=== PATIENT | male | born 1950 | race Caucasian/White ===

== ENCOUNTER 2019-03-04 09:16 | Emergency (ER) | payer OTHER ==
[2019-03-04 10:18] LABS: Protime INR 1.04
[2019-03-04 10:32] LABS: ALT/SGPT 61 U/L (12-78); AST/SGOT 35 U/L (15-37); Albumin 3.3 g/dL (3.4-5.0); Alkaline Phosphatase 65 U/L (45-117); BUN Blood Urea Nitrogen 13 mg/dL (7-18); Bicarbonate 26 mmol/L (21-32); Bilirubin Direct 0.2 mg/dL (0-0.2); Bilirubin Total 0.5 mg/dL (0.2-1.0); Glucose Level 104 mg/dL (74-106); Magnesium 2.3 mg/dL (1.8-2.4); NT PRO-BNP 748 pg/mL (<125); Protein, Total 6.8 g/dL (6.4-8.2); Sodium Level 143 mmol/L (136-145); Troponin (Emerg Dept Use Only) < 0.02 ng/mL (0.0-0.045)
[2019-03-04 10:34] LABS: Basophils % 0.6 % (0-1.3); Hematocrit 40.8 % (39.6-49.0); Lymphocytes % 14.8 % (15.3-44.8); MPV 9.9 fL (7.6-11.3); RBC Red Blood Cell Count 4.67 M/uL (4.33-5.43)
--- NOTE | 2019-03-04 11:30 | ER ---
Nurse's Notes [facility] Name: Mitul Jeong Age: 68 yrs Sex: Male : 1950 Arrival Date: 03/04/2019 Time: 09:18 Bed 8 Private MD: Kaleb Campos E Diagnosis: Essential (primary) hypertension Presentation: 03/04 09:25 Presenting complaint: Patient states: My Blood pressure has been running high, and I sg have had some shortness of breath that has worsened today, denies Dizziness, Chest Pain, denies N/V/D/Fever. Reports recently changed from Losartan to Metoprolol but unsure of why made the change other than having elevated renal labs. Transition of care: patient was not received from another setting of care. Onset of symptoms was March 04, 2019. Risk Assessment: Do you want to hurt yourself or someone else? Patient reports no desire to harm self or others. Initial Sepsis Screen: Does the patient meet any 2 criteria? No. Patient's initial sepsis screen is negative. Does the patient have a suspected source of infection? No. Patient's initial sepsis screen is negative. Care prior to arrival: None. 09:25 Method Of Arrival: Ambulatory sg 09:25 Acuity: GABRIELA 3 sg Historical: - Allergies: 09:34 No Known Allergies; sg - Home Meds: 09:34 Metoprolol Tartrate Oral [Active]; sg - PMHx: 09:34 Hypertension; sg - PSHx: 09:34 None; sg - Immunization history:: Adult Immunizations up to date. - Social history:: Smoking status: Patient/guardian denies using tobacco. - Ebola Screening: : Patient negative for fever greater than or equal to 101.5 degrees Fahrenheit, and additional compatible Ebola Virus Disease symptoms Patient denies exposure to infectious person Patient denies travel to an Ebola-affected area in the 21 days before illness onset No symptoms or risks identified at this time. Screenin:34 Abuse screen: Denies threats or abuse. Denies injuries from another. Nutritional sg screening: No deficits noted. Tuberculosis screening: No symptoms or risk factors identified. Never had TB. Fall Risk None identified. Assessment: 09:34 General: Appears in no apparent distress. well groomed, well developed, well nourished, sg Behavior is calm, cooperative, appropriate for age. Pain: Denies pain. Neuro: Level of Consciousness is awake, alert, obeys commands, Oriented to person, place, time, Cash Management Associate are equal bilaterally Moves all extremities. Speech is normal, Facial symmetry appears normal, Denies weakness blurred vision dizziness, difficulty swallowing, paresthesias numbness headache photophobia diplopia. Cardiovascular: Capillary refill is brisk in bilateral fingers Patient's skin is warm and dry. Chest pain is denied. Respiratory: Airway is patent Respiratory effort is even, unlabored, Respiratory pattern is regular, symmetrical, Breath sounds are clear bilaterally. GI: Abdomen is round obese, Reports normal bowel habits, tolerance of fluids, tolerance of food. : No signs and/or symptoms were reported regarding the genitourinary system. EENT: No signs and/or symptoms were reported regarding the EENT system. Derm: Skin is pink, warm \T\ dry. Musculoskeletal: Circulation, motion, and sensation intact. Range of motion: intact in all extremities. 10:30 Cardiovascular: Rhythm is sinus rhythm. bp 11:48 Reassessment: PT D/C HOME AMBULATORY WITH FAMILY, DX WITH ESSENTIAL HTN. bp Vital Signs: 09:23 BP 178 / 100; Pulse 63; Resp 18; Pulse Ox 100% on R/A; sg 09:44 Temp 98.8; sg 10:19 BP 134 / 90; Pulse 60; Resp 17; Pulse Ox 100% on R/A; sg 11:13 BP 131 / 86; Pulse 62; Resp 17; Pulse Ox 99% ; sg ED Course: 09:18 Patient arrived in ED. ag5 09:18 Kaleb Campos MD is Private Physician. ag5 09:22 Arm band placed on. sg 09:24 Brady Castañeda, RN is Primary Nurse. sg 09:25 Charles Hand NP is PHCP. pm1 09:25 Max Gallagher MD is Attending Physician. pm1 09:33 Triage completed. sg 09:45 Patient has correct armband on for positive identification. Bed in low position. Call bp light in reach. Side rails up X2. Adult w/ patient. 09:51 XRAY Chest (1 view) In Process Unspecified. EDMS 09:55 EKG done, by ED staff, reviewed by Charles Hand NP. jb1 10:00 Initial lab(s) drawn, by me, sent to lab. Inserted saline lock: 22 gauge in right sg antecubital area, using aseptic technique. Blood collected. 10:49 Nurse Practitioner and/or Physician Simulation Educator to see patient. sg 11:29 Kaleb Campos MD is Referral Physician. pm1 11:49 No provider procedures requiring assistance completed. IV discontinued, intact, bp bleeding controlled, No redness/swelling at site. Pressure dressing applied. Administered Medications: No medications were administered Outcome: 11:29 Discharge ordered by . pm1 11:49 Discharged to home ambulatory, with family. bp 11:49 Condition: stable 11:49 Discharge instructions given to patient, Instructed on discharge instructions, follow up and referral plans. Demonstrated understanding of instructions, follow-up care. 11:50 Patient left the ED. bp Signatures: Dispatcher [employer] EDCasey Saul jb1 Brady Castañeda, RN RN sg Charles Hand, ADMISSIONS EVALUATOR ADMISSIONS EVALUATOR pm1 Shivam Reinoso RN RN bp Danis Posey ag5
--- NOTE | 2019-03-04 11:30 | EDPHYS ---
Physician Documentation [facility] Name: Mitul Ricerzypadry Age: 68 yrs Sex: Male : 1950 Arrival Date: 03/04/2019 Time: 09:18 Bed 8 Private MD: Kaleb Campos E ED Physician Max Gallagher HPI: 03/04 09:45 This 68 yrs old Male presents to ER via Ambulatory with complaints of pm1 Shortness Of Breath, High Blood Pressure. 09:45 Patient with complaints of shortness of breath and elevated blood pressure. Patient saw pm1 PCPBeth recently and had labs. Was called in a prescription for Metoprolol 25 mg BID and instructed to stop the losartan 50 / 12.5 HCTZ Daily. Patient's blood pressure started getting elevated on . Reports shortness of breath started with elevated blood pressure. No chest pain, cough, nausea or vomiting. Patient' reports highest blood pressure readings of 190's systolic and 120's diastolic . Historical: - Allergies: 09:34 No Known Allergies; sg - Home Meds: 09:34 Metoprolol Tartrate Oral [Active]; sg - PMHx: 09:34 Hypertension; sg - PSHx: 09:34 None; sg - Immunization history:: Adult Immunizations up to date. - Social history:: Smoking status: Patient/guardian denies using tobacco. - Ebola Screening: : Patient negative for fever greater than or equal to 101.5 degrees Fahrenheit, and additional compatible Ebola Virus Disease symptoms Patient denies exposure to infectious person Patient denies travel to an Ebola-affected area in the 21 days before illness onset No symptoms or risks identified at this time. ROS: 16:02 Constitutional: Negative for fever, chills, and weight loss, Eyes: Negative for injury, pm1 pain, redness, and discharge, ENT: Negative for injury, pain, and discharge, Neck: Negative for injury, pain, and swelling, Cardiovascular: Negative for chest pain, palpitations, and edema. 16:02 Abdomen/GI: Negative for abdominal pain, nausea, vomiting, diarrhea, and constipation, Back: Negative for injury and pain, : Negative for injury, bleeding, discharge, and swelling, MS/Extremity: Negative for injury and deformity, Skin: Negative for injury, rash, and discoloration, Neuro: Negative for headache, weakness, numbness, tingling, and seizure. 16:02 Respiratory: Positive for shortness of breath, Negative for cough, dyspnea on exertion, sputum production, wheezing. Exam: 16:02 Constitutional: This is a well developed, well nourished patient who is awake, alert, pm1 and in no acute distress. Head/Face: Normocephalic, atraumatic. Eyes: Pupils equal round and reactive to light, extra-ocular motions intact. Lids and lashes normal. Conjunctiva and sclera are non-icteric and not injected. Cornea within normal limits. Periorbital areas with no swelling, redness, or edema. ENT: Nares patent. No nasal discharge, no septal abnormalities noted. Tympanic membranes are normal and external auditory canals are clear. Oropharynx with no redness, swelling, or masses, exudates, or evidence of obstruction, uvula midline. Mucous membranes moist. Neck: Trachea midline, no thyromegaly or masses palpated, and no cervical lymphadenopathy. Supple, full range of motion without nuchal rigidity, or vertebral point tenderness. No Meningismus. Chest/axilla: Normal chest wall appearance and motion. Nontender with no deformity. No lesions are appreciated. Cardiovascular: Regular rate and rhythm with a normal S1 and S2. No gallops, murmurs, or rubs. Normal PMI, no JVD. No pulse deficits. Respiratory: Lungs have equal breath sounds bilaterally, clear to auscultation and percussion. No rales, rhonchi or wheezes noted. No increased work of breathing, no retractions or nasal flaring. Abdomen/GI: Soft, non-tender, with normal bowel sounds. No distension or tympany. No guarding or rebound. No evidence of tenderness throughout. Back: No spinal tenderness. No costovertebral tenderness. Full range of motion. Skin: Warm, dry with normal turgor. Normal color with no rashes, no lesions, and no evidence of cellulitis. MS/ Extremity: Pulses equal, no cyanosis. Neurovascular intact. Full, normal range of motion. 16:02 Neuro: Orientation: is normal, Motor: is normal, moves all fours, Gait: is steady, at a normal pace, without difficulty. Vital Signs: 09:23 BP 178 / 100; Pulse 63; Resp 18; Pulse Ox 100% on R/A; sg 09:44 Temp 98.8; sg 10:19 BP 134 / 90; Pulse 60; Resp 17; Pulse Ox 100% on R/A; sg 11:13 BP 131 / 86; Pulse 62; Resp 17; Pulse Ox 99% ; sg MDM: 09:25 Patient medically screened. pm1 11:28 Data reviewed: vital signs. Data interpreted: Pulse oximetry: on room air is 99 %. pm1 Interpretation: normal. 11:28 Counseling: I had a detailed discussion with the patient and/or guardian regarding: the pm1 historical points, exam findings, and any diagnostic results supporting the discharge/admit diagnosis, lab results, radiology results, the need for outpatient follow up, to return to the emergency department if symptoms worsen or persist or if there are any questions or concerns that arise at home. 11:28 Physician consultation: Kaleb Campos MD No return phone call or answer with calls at pm1 1050 and 1122. Informed patient that he has not called back and the patient told me that he decided that he will go back to his losartan-HCTZ on his own until he follows up next week. I told the patient that I cannot support his decision to take medications without his PCP's advise. Patient likely needs dual therapy for blood pressure management, perhaps losartan with metoprolol. 03/04 09:33 Order name: Basic Metabolic Panel; Complete Time: 10:35 pm1 03/04 09:33 Order name: CBC with Diff; Complete Time: 10:35 pm1 03/04 09:33 Order name: LFT's; Complete Time: 10:35 pm1 03/04 09:33 Order name: Magnesium; Complete Time: 10:35 pm1 03/04 09:33 Order name: NT PRO-BNP; Complete Time: 10:35 pm1 03/04 09:33 Order name: PT-INR; Complete Time: 10:35 pm1 03/04 09:33 Order name: Troponin (emerg Dept Use Only); Complete Time: 10:35 pm1 03/04 09:33 Order name: XRAY Chest (1 view); Complete Time: 11:56 pm1 03/04 09:33 Order name: EKG; Complete Time: 09:34 pm1 03/04 09:33 Order name: Cardiac monitoring; Complete Time: 09:35 pm1 03/04 09:33 Order name: EKG - Nurse/Tech; Complete Time: :44 pm1 03/04 09:33 Order name: IV Saline Lock; Complete Time: :44 pm1 03/04 09:33 Order name: Labs collected and sent; Complete Time: :44 pm1 03/04 09:33 Order name: O2 Per Protocol; Complete Time: 09:35 pm1 03/04 09:33 Order name: O2 Sat Monitoring; Complete Time: :35 pm1 Administered Medications: No medications were administered Disposition: 14:02 Co-signature as Attending Physician, Max Gallagher MD. rn Disposition: 03/04/19 11:29 Discharged to Home. Impression: Essential (primary) hypertension. - Condition is Stable. - Discharge Instructions: Hypertension, How to Take Your Blood Pressure, Grmw-ip-Ifdy, DASH Eating Plan, Managing Your Hypertension. - Medication Reconciliation Form, Thank You Letter, Antibiotic Education, Prescription Opioid Use form. - Follow up: Emergency Department; When: As needed; Reason: Worsening of condition. Follow up: Kaleb Campos MD; When: 2 - 3 days; Reason: Recheck today's complaints, Continuance of care, Re-evaluation by your physician. - Problem is new. - Symptoms have improved. Signatures: Dispatcher [employer] EDBrady Moody RN RN Max Gallagher MD MD rn Marinas, Patrick, GEM CUTTER GEM CUTTER pm1 Shivam Reinoso RN RN bp Corrections: (The following items were deleted from the chart) 11:50 11:29 03/04/2019 11:29 Discharged to Home. Impression: Essential (primary) bp hypertension. Condition is Stable. Forms are Medication Reconciliation Form, Thank You Letter, Antibiotic Education, Prescription Opioid Use. Follow up: Emergency Department; When: As needed; Reason: Worsening of condition. Follow up: Kaleb Campos; When: 2 - 3 days; Reason: Recheck today's complaints, Continuance of care, Re-evaluation by your physician. Problem is new. Symptoms have improved. pm1
--- NOTE | 2019-03-04 11:41 | RAD REPORT ---
EXAM DESCRIPTION: Beth Single View03/04/2019 9:55 am CLINICAL HISTORY: sob COMPARISON: none FINDINGS: The lungs appear clear of acute infiltrate. The heart is normal size IMPRESSION: No acute abnormalities displayed
[2019-03-04 12:05] VITALS: TEMP 98.8
[2019-03-04 12:08] VITALS: BP 131/86; O2SAT 99
--- NOTE | 2019-03-05 19:55 | EKG ---
Test Date: 2019-03-04 Test Time: 09:43:04 Staff Air Defense Officer: LUIS MANUEL MEASUREMENT RESULTS: Intervals: Rate: 64 VT: 148 QRSD: 106 QT: 404 QTc: 416 [place]: P: 21 VT: 148 QRS: 14 T: 43 INTERPRETIVE STATEMENTS: Normal sinus rhythm Normal ECG No previous ECG available for comparison Electronically Signed On 03-05-19 19:53:05 CDT by Aj Barnard
== END 2019-03-04 11:50 | disposition home or self-care (01) ==
LOC: ER 09:16
DX: I10 Essential (primary) hypertension (principal)
CPT/HCPCS: 36415; 71045; 80048; 80076; 83735; 83880; 84484; 85025; 85610; 93005; 99284

== ENCOUNTER 2020-04-27 14:15 | Inpatient (IN) | payer OTHER ==
--- OUTSIDE RECORDS SUMMARY | 2020-04-27 14:16 | XMS REPORT | Continuity of Care Document ---
:1950 Author Organization [facility] t Address [address] [place] [address] Care Team Providers Name Role Phone Unavailable Unavailable Unavailable Problems This patient has no known problems. Allergies, Adverse Reactions, Alerts This patient has no known allergies or adverse reactions. Medications Ordered Filled Start Stop Current Ordering Indication Dosage Frequency Signature Comments Components Source Medication Medication Date Date Medication? Clinician (SIG) Name Name Hydrochloro Hydrochloro 2019-0 Yes Na Zhao [address] [facility] thiazide [facility]iazide 4-01 [facility] Losartan Losartan 2019-0 Yes Na Zhao [address] [facility] Potassium Potassium 4-01 [facility] Neomycin-Po Neomycin-Po 2019-0 Yes Na Zhao [address] [facility] lymyxin-HC lymyxin-HC 3-24 into [facility] - 00:00: affected [facility] 00 ear l [facility] Immunizations Ordered Filled Immunization Date Status Comments Sourc e Immunization Name Name Prevnar 13 Prevnar 13 2019-12-[address] [facility] - -Pneumonia Vaccine -Pneumonia Vaccine 00:00:00 [facility] Procedures This patient has no known procedures. Encounters Start End Encounter Admission Attending Care Care Encounter Source Date/Time Date/Time Type Type Clinicians Facility Department ID 2020-02-15 2020-02-15 Outpatient [facility] [id number] [facility] 2019-12-27 2019-12-27 [facility] [id number] [facility] 10:40:00 10:40:00 [facility] [employer] [facility] Medicine Outpati ent Clinics 2019-12-27 2019-12-27 [facility] [id number] [facility] 10:00:00 10:00:00 t [employer] [facility] Medicine Outpati ent Clinics 2019-11-15 2019-11-15 [facility] [id number] [facility] 11:20:00 11:20:00 t [employer] [facility] Medicine Outpati ent Clinics 2019-08-09 2019-08-09 [facility] [id number] [facility] 08:38:00 08:38:[address] [facility] Medicine Outpati ent Clinics 2019-08-01 2019-08-01 [facility] [id number] [facility] [address] 08[facility]00:00 08:00:[address] [facility] Medicine Outpati ent Clinics 2019-05-08 2019-05-08 [facility] [id number] [facility] [address] 08:00:[facility] 08:00:[address] [facility] Medicine Outpati ent Clinics 2019-05-05 2019-05-05 [facility] [id number] [facility] 10:00:00 10:00:[address] [facility] Medicine Outpati [facility] Clinics Results This patient has no known results.
--- OUTSIDE RECORDS SUMMARY | 2020-04-27 14:16 | XMS REPORT ---
:1950 Author Organization [facility] Address 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 Active 687550390 to excess calories Problem Hyperuricemia E79.0 Active 91402263 Problem Essential I10 Active 96222474 hypertension Problem Establishing care Z76.89 Active 620099061 with new doctor, encounter for Problem Hypertension, I10 Active 31041553 unspecified type Problem Acute bacterial H10.31 Active 735764552 conjunctivitis of right eye ALLERGIES No Known Allergies ENCOUNTERS from 1950 to 2020-02-16 Encounter Location Date Provider Diagnosis [facility] [address] [facility] [address] [place] [address] Feb, 2020 [place] [address] IMMUNIZATIONS Vaccine Route Administration Date Status Prevnar 13 -Pneumonia Vaccine IM Intramuscular Dec 27, 2019 A dministered SOCIAL HISTORY Tobacco Use: Social History Observation Description Date Details (start date - stop date) Current Smoker Sex Assigned At : Social History Observation Description Sex Assigned At Unknown Alcohol Screen Question Answer Notes Did you have a drink containing alcohol in the past Yes year? Points 2 Interpretation Negative How often did you have 6 or more drinks on one Less than mon thly (1 point) occasion in the past year? How many drinks did you have on a typical day when 1 or 2 (0 points) you were drinking in the past year? How often did you have a drink containing alcohol Monthly or less (1 point) in the past year? Tobacco Use/Smoking Question Answer Notes Are you a current smoker How many cigarettes a day do you smoke? 11- REASON FOR REFERRAL No Information VITAL SIGNS No information MEDICATIONS Medication SIG (Take, Route, Start Date End Date Status Frequency, Duration) Losartan Potassium 50 MG 1 tablet Orally Once Active a day for 90 days Cpvnykfa-Xecbflefs-CO 4 drops into affected Jul, Not-Taking [id number] ear Otic Three times a day for 7 days Hydrochlorothiazide 12.5 MG 1 tablet in the Active morning Orally Once a day for 90 days PROCEDURES No Information RESULTS No Results REASON FOR VISIT shortness of breath MEDICAL (GENERAL) HISTORY Type Description Date Medical History Essential hypertension Medical History psoriasis Surgical History No Surgical history information Goals Section No Information Health Concerns No Information MEDICAL EQUIPMENT No Information MENTAL STATUS No Information FUNCTIONAL STATUS No Information ASSESSMENTS No Information PLAN OF TREATMENT Medication Medication Name Sig Start Date Stop Date Losartan Potassium 50 MG 1 tablet Orally Once a day for 90 days Hydrochlorothiazide 12.5 MG 1 tablet in the morning Orally Once a day for 90 days Insurance Providers Payer Name Payer Payer Insured Patient Coverage Coverage End Address Phone Name Relationship to Start Date Chavo e Insured [employer] [phone] [place], self [facility] [id number] [facility] [place] Replace [phone]
[2020-04-27] MEDS ORDERED: NA CHLORIDE 0.9% 500 ML ONE (15:10)
[2020-04-27 15:21] LABS: Absolute Lymphocytes (CBC) 0.5 K/uL (0.7-4.9); Basophils % 0.5 % (0-1.3); Hematocrit 42.2 % (39.6-49.0); Lymphocytes % 17.9 % (15.3-44.8); MPV 10.4 fL (7.6-11.3); RBC Red Blood Cell Count 5.02 M/uL (4.33-5.43)
[2020-04-27 15:27] LABS: Protime INR 1.05
[2020-04-27 15:35] LABS: ALT/SGPT 45 U/L (12-78); AST/SGOT 44 U/L (15-37); Albumin 3.3 g/dL (3.4-5.0); Alkaline Phosphatase 62 U/L (45-117); BUN Blood Urea Nitrogen 23 mg/dL (7-18); Bicarbonate 27 mmol/L (21-32); Bilirubin Direct 0.3 mg/dL (0-0.2); Bilirubin Total 0.6 mg/dL (0.2-1.0); Creatine Phosphokinase 128 U/L (39-308); Glucose Level 99 mg/dL (74-106); Lipase 238 U/L (73-393); Magnesium 2.4 mg/dL (1.8-2.4); Potassium 3.3 mmol/L (3.5-5.1); Protein, Total 7.2 g/dL (6.4-8.2); Sodium Level 135 mmol/L (136-145); Troponin (Emerg Dept Use Only) < 0.02 ng/mL (0.0-0.045)
[2020-04-27] MEDS ORDERED: ALBUTEROL INHALER 60 PUFF/8 GM IH ONE (15:42)
[2020-04-27] MEDS ORDERED: METHYLPREDNISOLONE 40 MG INJ ONE (15:42)
[2020-04-27] MEDS ORDERED: POTASSIUM 25 MEQ EFFERV TAB ONE (16:01)
--- NOTE | 2020-04-27 16:05 | RAD REPORT ---
EXAM DESCRIPTION: RAD - Chest Single View - 04/27/2020 3:57 pm CLINICAL HISTORY: COUGH, right greater than left back pain COMPARISON: Portable February 2019 TECHNIQUE: AP portable chest image was obtained 04/27/2020 3:57 pm . FINDINGS: Interstitial pattern is similar to comparison. No peripheral mass or consolidation. Bilate ral pericardial fat noted. Heart and vasculature are normal. No measurable pleural effusion and no pn eumothorax. No acute bony abnormality seen. No acute aortic findings suspected. IMPRESSION: No acute cardiopulmonary process. Portable technique is limiting. Mild ground-glass opacities associated with COVID-19 pneumonia potent ially obscured.
[2020-04-27 16:13] LABS: Blood Morphology Comment NOT SEEN (NOT SEEN); Platelet Estimate ADEQ; White Blood Cell Scan OK (OK)
--- NOTE | 2020-04-27 16:58 | RAD REPORT ---
EXAM DESCRIPTION: CT - Stone Protocol - 04/27/2020 4:12 pm CLINICAL HISTORY: right flank pain COMPARISON: <Comparisons> TECHNIQUE: Axial 5 mm thick images were obtained without oral or IV contrast. The bzvip-ol-vsqy span s the entirety of the system including uppermost abdomen and lung bases. All CT scans are performed using dose optimization technique as appropriate and may include automated exposure control or mA/KV adjustment according to patient size. FINDINGS: No hydronephrosis is present and no obstructing ureteral calculi. No suspicious renal mass es. Isodense masses and pyelonephritis are not excluded on a stone protocol CT scan. An exophytic 3.5 centimeter mass lateral upper pole right kidney is most likely an incidental cyst. No significant ad renal finding. No urinary bladder suspicious finding. Imaged portions of the liver, spleen and pancreas show no suspicious findings on non-contrast imaging . Liver is mildly fatty infiltrated. No gallbladder or biliary tree abnormality identified. No acute bowel findings. Appendix is normal. Prominent diverticulosis noted in a tortuous and redunda nt sigmoid colon. No acute GI process seen. No mass or bulky lymphadenopathy. Patient has a very small 10 mm umbilical hernia along with bilatera l fat filled inguinal hernias. No free air, free fluid or inflammatory stranding. No significant bony abnormality. IMPRESSION: Noncontrast CT abdomen and pelvis imaging showing no acute or emergent finding. Isodense masses and pyelonephritis are not excluded on stone protocol technique. No acute GI process.
--- NOTE | 2020-04-27 17:16 | EDPHYS ---
Physician Documentation [facility] Name: Mitul Jeong Age: 69 yrs Sex: Male : 1950 Arrival Date: 04/27/2020 Time: 14:17 Bed 7 Private MD: ED Physician Max Gallagher HPI: 04/27 14:54 This 69 yrs old Male presents to ER via Ambulatory with complaints of Blood cp Pressure Problem, Low Back Pain, Covid+. 14:55 The patient or guardian reports cough, that is intermittent. cp 14:55 Onset: The symptoms/episode began/occurred 1 week(s) ago. Associated signs and cp symptoms: Pertinent negatives: chest pain, diarrhea, fever, vomiting. Severity of symptoms: in the emergency department the symptoms are unchanged despite home interventions. reports patient's blood pressure has been low today. Has been taking blood pressure with home machine and systolic pressure has been as low as 106 and diastolic pressure as low as 55. Historical: - Allergies: 14:47 No Known Allergies; sv - PMHx: 14:47 Hypertension; sv - PSHx: 14:47 None; sv - Immunization history:: Adult Immunizations. - Social history:: Smoking status: . ROS: 15:00 Constitutional: Negative for body aches, chills, fever, poor PO intake. cp 15:00 Eyes: Negative for injury, pain, redness, and discharge. cp 15:00 ENT: Negative for ear pain, sore throat, difficulty swallowing, difficulty handling secretions. 15:00 Cardiovascular: Negative for chest pain, edema, palpitations. 15:00 Respiratory: Positive for cough, shortness of breath, at rest. 15:00 Abdomen/GI: Negative for abdominal pain, nausea, vomiting, and diarrhea. 15:00 Neuro: Negative for altered mental status, headache, syncope, weakness. 15:00 All other systems are negative. Exam: 15:05 Constitutional: The patient appears in no acute distress, alert, awake, cp non-diaphoretic, non-toxic, well developed, well nourished. 15:05 Head/Face: Normocephalic, atraumatic. cp 15:05 Eyes: Periorbital structures: appear normal, Conjunctiva: normal, no exudate, no injection, Lids and lashes: appear normal, bilaterally. 15:05 ENT: External ear(s): are unremarkable, Nose: is normal, Mouth: Lips: moist, Oral mucosa: moist, Posterior pharynx: Airway: no evidence of obstruction, patent. 15:05 Neck: ROM/movement: is normal, is supple, without pain, no range of motions limitations. 15:05 Chest/axilla: Inspection: normal, Palpation: is normal, no crepitus, no tenderness. 15:05 Cardiovascular: Rate: normal, Rhythm: regular, Edema: is not appreciated, JVD: is not appreciated. 15:05 Respiratory: the patient does not display signs of respiratory distress, Respirations: labored breathing, that is mild, Breath sounds: bronchial sounds, that are mild, are heard diffusely, decreased breath sounds, that are mild, throughout, stridor, is not appreciated, wheezing: is not appreciated. 15:05 Abdomen/GI: Inspection: abdomen appears normal, Palpation: abdomen is soft and non-tender, in all quadrants. 15:05 Neuro: Orientation: to person, place \T\ time. Mentation: is normal, Cerebellar function: is grossly normal, Motor: moves all fours, strength is normal, Sensation: is normal. 15:18 ECG was reviewed by the Attending Physician. cp Vital Signs: 14:45 BP 117 / 83; Pulse 87; Resp 24; Temp 98.7(O); Pulse Ox 95% on R/A; sv 15:36 BP 112 / 80 Sitting; Pulse 77; Resp 20; Pulse Ox 92% on R/A; tw2 15:36 BP 123 / 88 Standing; Pulse 89; Resp 20; Pulse Ox 92% on R/A; tw2 15:36 BP 110 / 81 Supine; Pulse 78; Resp 20; Pulse Ox 90% on R/A; tw2 15:57 BP 104 / 70; Pulse 88; Resp 20; Pulse Ox 93% on R/A; tw2 16:59 BP 103 / 74; Pulse 81; Resp 20; Pulse Ox 91% on R/A; tw2 17:41 BP 102 / 51; Pulse 84; Resp 20; Pulse Ox 88% on R/A; tw2 19:24 BP 105 / 69; Pulse 85; Resp 21; Temp 97.9(O); Pulse Ox 92% on 2 lpm NC; Pain 0/10; lp1 17:41 pt placed on 2L nc at this time, will continue to monitor tw2 MDM: 14:51 Patient medically screened. cp 17:13 Physician consultation: Edgar Abreu MD was called at 17:14, was contacted at 17:14, cp regarding admission, to the telemetry unit. patient's condition, and will see patient in ED, shortly. 17:15 Data reviewed: vital signs, nurses notes, lab test result(s), EKG, radiologic studies, cp plain films, and as a result, I will admit patient. 17:15 Differential diagnosis: bronchitis, flu, URI, pneumonia. Test interpretation: by ED cp physician or midlevel provider: ECG. Counseling: I had a detailed discussion with the patient and/or guardian regarding: the historical points, exam findings, and any diagnostic results supporting the discharge/admit diagnosis, lab results, radiology results. Response to treatment: the patient's symptoms have mildly improved after treatment. 04/27 14:53 Order name: Basic Metabolic Panel 04/27 14:53 Order name: CBC with Diff 04/27 14:53 Order name: LFT's 04/27 14:53 Order name: Magnesium cp 04/27 14:53 Order name: PT-INR; Complete Time: 16:22 04/27 14:53 Order name: Troponin (emerg Dept Use Only); Complete Time: 15:37 04/27 15:37 Interpretation: Within normal limits: TROPED < 0.02. 04/27 14:53 Order name: Urine Microscopic Only 04/27 14:53 Order name: Lipase; Complete Time: 15:37 04/27 14:53 Order name: CK; Complete Time: 15:37 04/27 14:53 Order name: Basic Metabolic Panel; Complete Time: 15:36 EDMS 04/27 15:36 Interpretation: Normal except: NA 135; K 3.3; BUN 23; CRE 1.45; GFR 49; CA 8.0. 04/27 14:53 Order name: CBC with Automated Diff; Complete Time: 16:22 EDMS 04/27 16:22 Interpretation: Normal except: WBC 3.0; MCV 84.1; PLT 97; LYMA 0.5. 04/27 14:53 Order name: Liver (Hepatic) Function; Complete Time: 15:37 EDMS 04/27 15:37 Interpretation: Normal except: AST 44; BILID 0.3; ALB 3.3; GLOB 3.9; A/G 0.8. 04/27 14:53 Order name: Magnesium; Complete Time: 15:37 EDMS 04/27 15:24 Order name: CBC Smear Scan; Complete Time: 16:22 EDAK 04/27 14:53 Order name: EKG; Complete Time: 14:54 04/27 14:53 Order name: Cardiac monitoring; Complete Time: 15:15 04/27 14:53 Order name: EKG - Nurse/Tech; Complete Time: 15:15 04/27 14:53 Order name: IV Saline Lock; Complete Time: 14:54 04/27 14:53 Order name: Labs collected and sent; Complete Time: 14:54 04/27 14:53 Order name: O2 Per Protocol; Complete Time: 14:54 04/27 14:53 Order name: O2 Sat Monitoring; Complete Time: 14:54 04/27 14:53 Order name: Urine Dipstick-Ancillary (obtain specimen); Complete Time: 17:40 04/27 14:55 Order name: Orthostatics; Complete Time: 15:40 04/27 15:18 Order name: XRAY Chest (1 view); Complete Time: 16:22 04/27 15:54 Order name: CT Stone Protocol; Complete Time: 16:58 04/27 16:59 Interpretation: Report reviewed. 04/27 17:25 Order name: Urine Dipstick--Ancillary (enter results) eb EC:18 Rate is 90 beats/min. Rhythm is regular. MI interval is normal. QRS interval is normal. cp QT interval is normal. T waves are Inverted in lead aVR. Interpreted by me. Reviewed by me. Administered Medications: 15:14 Drug: NS 0.9% 500 ml Route: IV; Rate: bolus; Site: right antecubital; ll1 15:35 Drug: SOLU-Medrol 80 mg Route: IVP; Site: right antecubital; tw2 15:53 Follow up: Response: No adverse reaction tw2 15:40 Drug: Albuterol HFA Inhaler 2 puffs Route: Inhalation; tw2 15:56 Drug: Potassium Effervescent Tablet 50 mEq Route: PO; tw2 17:21 Follow up: Response: No adverse reaction tw2 Disposition: 04/28 07:33 Co-signature as Attending Physician, Max Gallagher MD. rn Disposition: 04/27/20 17:15 Hospitalization ordered by Edgar Abreu for Observation. Preliminary diagnosis are Coronavirus infection, unspecified, Hypoxemia. - Bed requested for Telemetry/MedSurg (observation). - Status is Observation. lp1 - Condition is Stable. - Problem is new. - Symptoms have improved. Signatures: Dispatcher [employer] EDLidia Reno, RN RN Rachel Bhardwaj RN DEVANTE dw Max Gallagher MD MD rn Pena, Laura RN RN lp1 Scott Maravilla PA PA cp Wise, Tara, RN RN tw2 Gordo Mcgee RN RN ll1 Corrections: (The following items were deleted from the chart) 04/27 15:36 15:36 Normal except: NA 135; K 3.3; BUN 23; CRE 1.45; GFR 49. cp cp 16:22 15:37 Normal except: WBC 3.0; MCV 84.1; PLT 97. cp cp 18:52 17:15 Hospitalization Ordered by Edgar Abreu MD for Observation. Preliminary dw diagnosis is Coronavirus infection, unspecified; Hypoxemia. Bed requested for Telemetry/MedSurg (observation). Status is Observation. Condition is Stable. Problem is new. Symptoms have improved. cp 19:52 18:52 04/27/2020 17:15 Hospitalization Ordered by Edgar Abreu MD for Observation. lp1 Preliminary diagnosis is Coronavirus infection, unspecified; Hypoxemia. Bed requested for Telemetry/MedSurg (observation). Status is Observation. Condition is Stable. Problem is new. Symptoms have improved. dw
--- NOTE | 2020-04-27 17:16 | ER ---
Nurse's Notes [facility] Name: Mitul Jeong Age: 69 yrs Sex: Male : 1950 Arrival Date: 04/27/2020 Time: 14:17 Bed 7 Private MD: Diagnosis: Coronavirus infection, unspecified;Hypoxemia Presentation: 04/27 14:45 Chief complaint: Patient states: hypotension and mid back pain R>L side x 2 days. COVID sv + on 04/21/20. c/o dry mouth. Denies dizziness, SOB, CP. Coronavirus screen: Client presents with at least one sign or symptom that may indicate coronavirus-19. Standard/surgical mask placed on the client. Provider contacted for isolation considerations. Client reports previous positive COVID test result. Ebola Screen: No symptoms or risks identified at this time. Risk Assessment: Do you want to hurt yourself or someone else? Patient reports no desire to harm self or others. Onset of symptoms was April 25, 2020. 14:45 Method Of Arrival: Ambulatory sv 14:45 Acuity: GABRIELA 3 sv 14:45 Initial Sepsis Screen: Does the patient meet any 2 criteria? RR > 20 per min. No. sv Patient's initial sepsis screen is negative. Does the patient have a suspected source of infection? No. Patient's initial sepsis screen is negative. Historical: - Allergies: 14:47 No Known Allergies; sv - PMHx: 14:47 Hypertension; sv - PSHx: 14:47 None; sv - Immunization history:: Adult Immunizations. - Social history:: Smoking status: . Screenin:13 Abuse screen: Denies threats or abuse. Nutritional screening: No deficits noted. ll1 Tuberculosis screening: No symptoms or risk factors identified. Fall Risk IV access (20 points). Gait- Weak (10 pts.). Total Penny Fall Scale indicates Low Risk Score (25-44 pts). Fall prevention measures have been instituted. Side Rails Up X 2 Frequent Obs/Assesments occuring Family Present and informed to notify staff if they need to leave bedside As available Patient and Family Educated on Fall Prevention Program and strategies. Assessment: 14:43 Reassessment: provider at bedside at this time. ll1 14:45 General: Appears in no apparent distress. obese, well groomed, Behavior is calm, tw2 cooperative, appropriate for age. Pain: Complains of pain in left mid back and right mid back. Neuro: Level of Consciousness is awake, alert, obeys commands, Oriented to person, place, time, situation. Cardiovascular: Patient's skin is warm and dry. Cardiovascular: Heart tones S1 S2. Respiratory: Airway is patent Respiratory effort is even, unlabored, Respiratory pattern is regular, symmetrical, Breath sounds are diminished bilaterally. GI: Abdomen is distended, non-distended, obese, Bowel sounds present X 4 quads. : No signs and/or symptoms were reported regarding the genitourinary system. EENT: Reports dry mouth. Derm: No signs and/or symptoms reported regarding the dermatologic system. Musculoskeletal: Range of motion: intact in all extremities. 15:57 Reassessment: Patient appears in no apparent distress at this time. No changes from tw2 previously documented assessment. Patient and/or family updated on plan of care and expected duration. Pain level reassessed. Patient is alert, oriented x 3, equal unlabored respirations, skin warm/dry/pink. 17:02 Reassessment: Patient appears in no apparent distress at this time. No changes from tw2 previously documented assessment. Patient and/or family updated on plan of care and expected duration. Pain level reassessed. Patient is alert, oriented x 3, equal unlabored respirations, skin warm/dry/pink. 17:20 Reassessment: hospitalist at bedside at this time. tw2 17:41 Reassessment: Patient appears in no apparent distress at this time. No changes from tw2 previously documented assessment. Patient and/or family updated on plan of care and expected duration. Pain level reassessed. Patient is alert, oriented x 3, equal unlabored respirations, skin warm/dry/pink. 19:20 Reassessment: Patient appears in no apparent distress at this time. Neuro: Level of lp1 Consciousness is awake, alert, obeys commands, Oriented to person, place, time, situation. Respiratory: Respiratory effort is even, Respiratory pattern is regular, Breath sounds are diminished bilaterally. Derm: Skin is intact, Skin is dry, Skin is pale. 19:26 Reassessment: Patient transported to CT via stretcher. lp1 Vital Signs: 14:45 BP 117 / 83; Pulse 87; Resp 24; Temp 98.7(O); Pulse Ox 95% on R/A; sv 15:36 BP 112 / 80 Sitting; Pulse 77; Resp 20; Pulse Ox 92% on R/A; tw2 15:36 BP 123 / 88 Standing; Pulse 89; Resp 20; Pulse Ox 92% on R/A; tw2 15:36 BP 110 / 81 Supine; Pulse 78; Resp 20; Pulse Ox 90% on R/A; tw2 15:57 BP 104 / 70; Pulse 88; Resp 20; Pulse Ox 93% on R/A; tw2 16:59 BP 103 / 74; Pulse 81; Resp 20; Pulse Ox 91% on R/A; tw2 17:41 BP 102 / 51; Pulse 84; Resp 20; Pulse Ox 88% on R/A; tw2 19:24 BP 105 / 69; Pulse 85; Resp 21; Temp 97.9(O); Pulse Ox 92% on 2 lpm NC; Pain 0/10; lp1 17:41 pt placed on 2L nc at this time, will continue to monitor tw2 ED Course: 14:17 Patient arrived in ED. rg4 14:20 Scott Maravilla PA is PHCP. cp 14:20 Max Gallagher MD is Attending Physician. cp 14:46 Triage completed. sv 14:47 Arm band placed on. sv 15:00 Inserted saline lock: 20 gauge in right antecubital area, using aseptic technique. ll1 Blood collected. 15:14 Patient has correct armband on for positive identification. Bed in low position. Call ll1 light in reach. Side rails up X 1. sheep killer on. Pulse ox on. NIBP on. 15:17 Cyn Devi RN is Primary Nurse. tw2 15:57 XRAY Chest (1 view) In Process Unspecified. EDMS 16:12 CBC Smear Scan Sent. sv 16:12 Magnesium Sent. sv 16:13 CT Stone Protocol In Process Unspecified. EDMS 16:13 LFT's Sent. sv 16:13 CBC with Diff Sent. sv 16:13 Basic Metabolic Panel Sent. sv 17:14 Edgar Abreu MD is Hospitalizing Provider. cp 19:01 Report given to DEVANTE Damico. tw2 19:19 No provider procedures requiring assistance completed. Patient admitted, IV remains in lp1 place. Administered Medications: 15:14 Drug: NS 0.9% 500 ml Route: IV; Rate: bolus; Site: right antecubital; ll1 15:35 Drug: SOLU-Medrol 80 mg Route: IVP; Site: right antecubital; tw2 15:53 Follow up: Response: No adverse reaction tw2 15:40 Drug: Albuterol HFA Inhaler 2 puffs Route: Inhalation; tw2 15:56 Drug: Potassium Effervescent Tablet 50 mEq Route: PO; tw2 17:21 Follow up: Response: No adverse reaction tw2 Outcome: 17:15 Decision to Hospitalize by Provider. cp 19:19 Condition: stable lp1 19:19 Instructed on the need for admit. 19:34 Admitted to Tele via wheelchair, room 407, with oxygen, with chart, Report called to lp1 DEVANTE Lamb 19:52 Patient left the ED. 1 Signatures: Dispatcher [employer] EDLidia Reno RN RN sv Margaux Escoto RN RN 1 Scott Maravilla PA PA cp Cyn Devi RN RN 2 Maria Kline 4 Gordo Mcgee RN RN 1 Corrections: (The following items were deleted from the chart) 14:50 14:45 Temp 98.7F Oral; sv sv
[2020-04-27] MEDS ORDERED: MORPHINE 2 MG/ML SYR IV PRN (17:33)
[2020-04-27] MEDS ORDERED: ONDANSETRON 4 MG/2 ML VIAL IV PRN (17:33)
[2020-04-27] MEDS ORDERED: ACETAMINOPHEN 500 MG TAB PO PRN (17:33)
--- NOTE | 2020-04-27 17:38 | P.HP ---
Certification for Inpatient Patient admitted to: Inpatient With expected LOS: >2 Midnights Practitioner: I am a practitioner with admitting privileges, knowledge of patient current condition, hospital course, and medical plan of care. Services: Services provided to patient in accordance with Admission requirements found in Title 42 Section 412.3 of the Code of Federal Regulations Patient History Date of Service: 04/27/20 Reason for admission: Shortness of breath, hypertension History of Present Illness: 69 yrs old Male with past medical history hypertension presents to ER with complaints of low blood pressure and low back pain which has been going on since this morning. He was diagnosed with covid 19 3 days back also has shortness of breath on exertion, denies any chest pain firm, no fever or chills Denies any nausea vomiting or diarrhea Patient was assessed in the ER and was found to have hypertension and was started on fluids. He was also found to be hypoxic and had to be started on oxygen supplementation. The patient is being admitted for further management Review of Systems 10-point ROS is otherwise unremarkable Physical Examination - Vital Signs Temperature: 99.2 F Blood Pressure: 106/68 Pulse: 76 Respirations: 18 Pulse Ox (%): 89 - Physical Exam General: Alert, In no apparent distress, Obese HEENT: Atraumatic, Normocephalic Neck: Supple Respiratory: Diminished, Crackles/rales Cardiovascular: Regular rate/rhythm, Normal S1 S2 Capillary refill: <2 Seconds Gastrointestinal: Soft and benign, W/out hepatosplenomegaly Musculoskeletal: No clubbing, No swelling Integumentary: No rashes, No breakdown Neurological: Normal speech, Normal strength at 5/5 x4 extr Lymphatics: No axilla or inguinal lymphadenopathy - Studies Laboratory Data (last 24 hrs) 04/27/20 15:00: PT 12.4, INR 1.05 04/27/20 15:00: WBC 3.0 L, Hgb 14.2, Hct 42.2, Plt Count 97 L 04/27/20 15:00: Sodium 135 L, Potassium 3.3 L, BUN 23 H, Creatinine 1.45 H, Glucose 99, Magnesium 2.4, Total Bilirubin 0.6, AST 44 H, ALT 45, Alkaline Phosphatase 62, Lipase 238 Assessment and Plan - Problems (Diagnosis) (1) Acute respiratory failure with hypoxia Current Visit: Yes Status: Acute (2) COVID-19 Current Visit: Yes Status: Acute - Plan COVID 19 pneumonia Acute hypoxic respiratory failure Hypotension Possible sepsis History of hypertension Hypernatremia Hypokalemia Acute renal insufficiency Plan Monitor under telemetry Oxygen supplementation Start on fluids Steroids IV IV antibiotics to cover for CAP Will hold her antihypertensives for now Correct electrolytes Will monitor CRP CT of the chest with contrast to rule out PE GI/DVT prophylaxis Advanced directives full code for now - Advance Directives Does patient have a Living Will: No Does patient have a Durable POA for Healthcare: No Time Spent Managing Pts Care (In Minutes): 45
[2020-04-27 17:49] LABS: Urine Bacteria 20-50 /HPF (NONE SEEN)
[2020-04-27 17:52] LABS: Urine Blood 1+ (NEG); Urine Glucose NEGATIVE (NEG)
[2020-04-27 17:53] LABS: Urine Protein NEGATIVE (NEG)
[2020-04-27] MEDS: NA CHLORIDE 0.9% 1,000 ML IV SCH (20:00)
--- NOTE | 2020-04-27 20:05 | RAD REPORT ---
EXAM DESCRIPTION: CT - Chest For Pe Angio - 04/27/2020 7:45 pm CLINICAL HISTORY: COVID 19, COMPARISON: Stone Protocol dated 04/27/2020 TECHNIQUE: Dynamically enhanced 3 mm thick images of the chest were obtained during administration o f approximately 150mL Isovue 370 IV contrast. Coronal and oblique MIP reconstruction images were gene rated and reviewed. Exam utilizes a protocol to evaluate the pulmonary arterial tree. All CT scans are performed using dose optimization technique as appropriate and may include automated exposure control or mA/KV adjustment according to patient size. FINDINGS: Pulmonary arterial tree contrast density is not optimal. This limits the far peripheral br anch assessment. No central pulmonary emboli are present. Far peripheral branch embolic disease is un likely. The aorta as imaged shows no acute or suspicious finding. No pericardial thickening or effusion. Scarring changes are present in the lung parenchyma. Emphysema is seen. No acute lung parenchymal pro cess suspected. No pleural effusion or pleural thickening. No mediastinal or hilar suspicious masses. No chest wall masses or abnormal axillary lymphadenopathy. IMPRESSION: Exam was suboptimal but no pulmonary emboli identifiable. No acute or emergent finding seen.
[2020-04-27] MEDS: METHYLPREDNISOLONE 40 MG INJ IV SCH (20:58)
[2020-04-27 22:22] VITALS: BMI 39.7
[2020-04-28] MEDS: HEPARIN 5000 UNIT/ML 1 ML VIAL SQ SCH ×3 (00:30→18:06)
[2020-04-28 05:46] LABS: Absolute Lymphocytes (CBC) 0.2 K/uL (0.7-4.9); Basophils % 0.3 % (0-1.3); Hematocrit 41.2 % (39.6-49.0); Lymphocytes % 20.8 % (15.3-44.8); MPV 10.4 fL (7.6-11.3); RBC Red Blood Cell Count 4.86 M/uL (4.33-5.43)
[2020-04-28 06:01] LABS: Albumin 2.9 g/dL (3.4-5.0); Bilirubin Total 0.6 mg/dL (0.2-1.0); C-Reactive Protein 19.6 mg/L (<3.00); Ferritin 431.1 ng/mL (26-388); Potassium 4.1 mmol/L (3.5-5.1); Protein, Total 6.9 g/dL (6.4-8.2)
[2020-04-28] MEDS: NA CHLORIDE 0.9% 1,000 ML IV SCH ×2 (06:05→18:06)
[2020-04-28] MEDS: ZINC SULFATE 220 MG CAP PO SCH (08:27)
[2020-04-28] MEDS: ASCORBIC ACID 500 MG TABLET PO SCH (08:27)
[2020-04-28] MEDS: METHYLPREDNISOLONE 40 MG INJ IV SCH (08:28)
[2020-04-28] MEDS ORDERED: CEFTRIAXONE 1 GM/NS 50 ML 1 GM/50 ML BAG IV SCH (09:00)
[2020-04-28] MEDS: AZITHROMYCIN IV 500 MG in NA CHLORIDE 0.9% 250 ML IVPB SCH (09:47)
--- NOTE | 2020-04-28 09:57 | P.PN ---
Subjective Date of Service: 04/28/20 Chief Complaint: Shortness of breath, hypertension Subjective: No new changes, No C/O voiced (Feeling better denies any chest pain or shortness of breath) Review of Systems 10-point ROS is otherwise unremarkable Physical Examination - Vital Signs Temperature: 96.8 F Blood Pressure: 113/58 Pulse: 68 Respirations: 19 Pulse Ox (%): 96 - Physical Exam General: Alert, In no apparent distress HEENT: Atraumatic, Normocephalic Neck: Supple, 2+ carotid pulse no bruit Respiratory: Normal air movement, Crackles/rales Cardiovascular: Normal pulses, Regular rate/rhythm Capillary refill: <2 Seconds Gastrointestinal: Soft and benign, Non-distended, W/out hepatosplenomegaly Musculoskeletal: No clubbing, No swelling Integumentary: No rashes Neurological: Normal speech, Normal strength at 5/5 x4 extr Lymphatics: No axilla or inguinal lymphadenopathy - Studies Laboratory Data (last 24 hrs) 04/27/20 15:00: PT 12.4, INR 1.05 04/27/20 15:00: WBC 3.0 L, Hgb 14.2, Hct 42.2, Plt Count 97 L 04/27/20 15:00: Sodium 135 L, Potassium 3.3 L, BUN 23 H, Creatinine 1.45 H, Glucose 99, Magnesium 2.4, Total Bilirubin 0.6, AST 44 H, ALT 45, Alkaline Phosphatase 62, Lipase 238 Assessment & Plan - Problems (Diagnosis) (1) Acute respiratory failure with hypoxia Current Visit: Yes Status: Acute (2) COVID-19 Current Visit: Yes Status: Acute Physician Review Additional Text: COVID 19 pneumonia Acute hypoxic respiratory failure Hypotension Possible sepsis History of hypertension Hypernatremia Hypokalemia Acute renal insufficiency Leukopenia Feeling slightly better Monitor under telemetry Oxygen supplementation to be continued to titrate to more than pulse ox 92 Blood pressure is stable now Steroids IV IV antibiotics to cover for CAP Correct electrolytes CT of the chest with contrast to rule out PE , Was negative for PE will get a pulmonology consult GI/DVT prophylaxis Advanced directives full code for now Time Spent Managing Pts Care (In Minutes): 42
[2020-04-28] MEDS ORDERED: CEFTRIAXONE/SWI 1gm 1 GM/10 ML SYR IV SCH (20:00)
[2020-04-28] MEDS: METHYLPREDNISOLONE 125 MG INJ IV SCH (20:06)
[2020-04-29] MEDS: HEPARIN 5000 UNIT/ML 1 ML VIAL SQ SCH ×2 (00:23→07:41)
[2020-04-29] MEDS: NA CHLORIDE 0.9% 1,000 ML IV SCH ×2 (03:42→10:00)
[2020-04-29 07:09] LABS: Absolute Lymphocytes (CBC) 0.4 K/uL (0.7-4.9); Basophils % 0.3 % (0-1.3); Hematocrit 41.6 % (39.6-49.0); Lymphocytes % 4.7 % (15.3-44.8); MPV 10.3 fL (7.6-11.3); RBC Red Blood Cell Count 4.95 M/uL (4.33-5.43)
[2020-04-29 07:26] LABS: C-Reactive Protein 11.5 mg/L (<3.00)
--- NOTE | 2020-04-29 07:37 | EKG ---
Test Date: 2020-04-27 Test Time: 15:07:05 Housekeeper And Laundry Assistant: MARGI MEASUREMENT RESULTS: Intervals: Rate: 90 CA: 152 QRSD: 94 QT: 370 QTc: 452 [place]: P: 86 CA: 152 QRS: -79 T: 63 INTERPRETIVE STATEMENTS: Normal sinus rhythm Pulmonary disease pattern Left anterior fascicular block Abnormal ECG Compared to ECG 03/04/2019 09:43:04 Left anterior fascicular block now present Electronically Signed On 04-29-20 07:34:38 WINE STEWARD by Aj Barnard
[2020-04-29] MEDS: METHYLPREDNISOLONE 125 MG INJ IV SCH (07:40)
[2020-04-29] MEDS: ASCORBIC ACID 500 MG TABLET PO SCH (07:41)
[2020-04-29] MEDS: AZITHROMYCIN IV 500 MG in NA CHLORIDE 0.9% 250 ML IVPB SCH (07:41)
[2020-04-29] MEDS: ZINC SULFATE 220 MG CAP PO SCH (07:41)
[2020-04-29 09:52] LABS: Blood Morphology Comment NOT SEEN (NOT SEEN); Platelet Estimate DECR
[2020-04-29 11:13] VITALS: O2SAT 96
--- NOTE | 2020-04-29 12:15 | P.CNS ---
Date of Consult: 04/29/20 Reason for Consult: Medeiros virus infection Chief Complaint: Shortness of breath, hypotension History of Present Illness: Patient is 69 years of age with a past history of hypertension admitted with low blood pressure low back pain he was diagnosed with coronal virus infection admitted with shortness of breath no fever or chills no nausea vomiting and diarrhea is currently doing better oxygenation satisfactory white count is up no blood cultures sent most likely these problems were due to medeiros virus infection CT scan does not show any significant interstitial changes Allergies No Known Allergies Allergy (Verified 04/27/20 20:55) Home Medications: Losartan Potassium [Cozaar] 50 mg PO DAILY 04/27/20 hydroCHLOROthiazide [Hydrochlorothiazide*] 12.5 mg PO DAILY 04/27/20 - Past Medical/Surgical History Diabetic: No -: hypertension - Family History Father Medical History: Cancer Mother Medical History: Cancer - Social History Alcohol use: No CD- Drugs: No Caffeine use: Yes Place of Residence: Home Review of Systems General: Weakness Physical Examination Temp Pulse Resp BP Pulse Ox 98.4 F 78 18 117/70 93 04/29/20 08:00 04/29/20 08:00 04/29/20 08:00 04/29/20 08:00 04/29/20 08:00 General: Alert, Oriented x3 Respiratory: Clear to auscultation bilaterally Cardiovascular: No edema, Normal S1 S2 - Problems (1) COVID-19 Current Visit: Yes Status: Acute Plan: Patient is 69 years of age admitted with hypotension mild hypoxemia he is doing much better evaluate for home O2 CT scan no evidence of medeiros virus infection I suspect patient has chronic renal failure urinalysis is negative the patient was neutropenic denies white count is normal recommend discharge on prednisone and aspirin en oxygen if needed patient has chronic renal failure CT of the abdomen was done no evidence of hydronephrosis plan for discharge
--- NOTE | 2020-04-29 12:51 | P.DS ---
Admission Date: 04/27/20 Discharge Date: 04/29/20 Primary Care Provider: Dr. Zhao Disposition: ROUTINE DISCHARGE Discharge Condition: GOOD Reason for Admission: Shortness of breath, hypotension Consultations: Pulmonary-Dr. Chinchilla Procedures: Ct chest: FINDINGS: Pulmonary arterial tree contrast density is not optimal. This limits the far peripheral branch assessment. No central pulmonary emboli are present. Far peripheral branch embolic disease is unlikely. The aorta as imaged shows no acute or suspicious finding. No pericardial thickening or effusion. Scarring changes are present in the lung parenchyma. Emphysema is seen. No acute lung parenchymal process suspected. No pleural effusion or pleural thickening. No mediastinal or hilar suspicious masses. No chest wall masses or abnormal axillary lymphadenopathy. IMPRESSION: Exam was suboptimal but no pulmonary emboli identifiable. No acute or emergent finding seen. Ct Ab: FINDINGS: No hydronephrosis is present and no obstructing ureteral calculi. No suspicious renal masses. Isodense masses and pyelonephritis are not excluded on a stone protocol CT scan. An exophytic 3.5 centimeter mass lateral upper pole right kidney is most likely an incidental cyst. No significant adrenal finding. No urinary bladder suspicious finding. Imaged portions of the liver, spleen and pancreas show no suspicious findings on non-contrast imaging. Liver is mildly fatty infiltrated. No gallbladder or biliary tree abnormality identified. No acute bowel findings. Appendix is normal. Prominent diverticulosis noted in a tortuous and redundant sigmoid colon. No acute GI process seen. No mass or bulky lymphadenopathy. Patient has a very small 10 mm umbilical hernia along with bilateral fat filled inguinal hernias. No free air, free fluid or inflammatory stranding. No significant bony abnormality. IMPRESSION: Noncontrast CT abdomen and pelvis imaging showing no acute or em ergent finding. Isodense masses and pyelonephritis are not excluded on stone protocol technique. No acute GI process. Medical Problem List: COVID 19 pneumonia with mild acute respiratory failure/hypoxia Acute renal insufficiency likely acute on chronic renal disease stage III Leukopenia with thrombocytopenia likely related to above CT showing 3.5 cm mass to the right upper kidney likely incidental cyst Mild fatty liver Hypotension with history of hypertension Brief History of Present Illness: 69-year-old male presented to the emergency room with shortness of breath and mild low blood pressure. Patient was evaluated the emergency room. Patient was found to be hypoxic. CT scan of the chest unremarkable. CT abdomen showed no acute findings. Leukopenia and thrombocytopenia likely related to COVID 19. Patient admitted for further evaluation and treatment. Patient was recently diagnosis with COVID 19. Hospital Course: Patient presented with shortness of breath. Patient had COVID 19 pneumonia with mild acute respiratory failure/hypoxia. Patient was admitted for further evalu ation and treatment. Acute renal insufficiency, leukopenia with thrombocytopenia, and were noted. All likely related to COVID 19 pneumonia. Suspect underlying acute on chronic renal disease stage III. Pulmonology was consulted. During the course of his stay patient received IV steroids with improvement. Patient with history of hypertension. Losartan and hydrochlorothiazide were discontinued during his stay. Blood pressures have been stable without medication at this time. At discharge patient requiring home oxygen. Currently on 2 L per nasal cannula. Renal function appears to be at baseline. At discharge patient will continue with home oxygen to maintain sats above 93%. This can be weaned off with the help of his PCP or pulmonology. At discharge patient will continue with aspirin 81 mg daily. The patient will also continue with prednisone 20 mg 1 pill twice daily for 7 days then 10 mg 1 pill twice daily for 7 days. Patient will continue with supplementation including vitamin-C, vitamin-D, thiamine. Recommend follow up with PCP in 1-2 weeks to follow up this hospitalization. Recommend to recheck lab-CBC in 1-2 weeks to monitors progress. As mentioned above patient with acute renal insufficiency. Previous lab reviewed. Patient was hydrated. Blood pressure medication including losartan hydrochlorothiazide were held during his stay. Blood pressures have remained stable. Patient likely with underlying acute on chronic renal disease stage III. As mentioned above patient not requiring any blood pressure medication at this time. Losartan and hydrochlorothiazide have been discontinued at discharge. Recommend to monitor his blood pressure daily. He is to keep a blood pressure log. If his blood pressures are consistently above 140/90, losartan can be restarted. Recommend follow up with PCP to further monitor and address. Patient would benefit with nephrology evaluation as an outpatient. Recommend no excessive use of nonsteroidal anti-inflammatories. Future medications may need to be renally dose. Recommend to recheck lab-BMP in 1-2 weeks to monitors progress. CT scan revealed 3.5 cm mass to the right upper kidney. This is likely incidental cysts. Recommend renal ultrasound as an outpatient to further address. His PCP can help with this. Patient noted to have fatty liver. Education provided. Vital Signs/Physical Exam: Temp Pulse Resp BP Pulse Ox 98.4 F 78 18 117/70 93 04/29/20 08:00 04/29/20 08:00 04/29/20 08:00 04/29/20 08:00 04/29/20 08:00 General: Alert, In no apparent distress, Oriented x3, Cooperative HEENT: Atraumatic Neck: Supple Respiratory: Clear to auscultation bilaterally, Normal air movement Cardiovascular: Normal pulses, Regular rate/rhythm Gastrointestinal: Normal bowel sounds Musculoskeletal: No erythema, No tenderness, No warmth Neurological: Normal speech, Normal strength at 5/5 x4 extr, Normal tone, Normal affect Laboratory Data at Discharge: WBC 8.8 K/uL (4.3-10.9) D 04/29/20 06:53 Hgb 14.1 g/dL (13.6-17.9) 04/29/20 06:53 Hct 41.6 % (39.6-49.0) 04/29/20 06:53 Plt Count 100 K/uL (152-406) L 04/29/20 06:53 PT 12.4 SECONDS (9.5-12.5) 04/27/20 15:00 INR 1.05 04/27/20 15:00 Sodium 137 mmol/L (136-145) 04/28/20 05:17 Potassium 4.1 mmol/L (3.5-5.1) 04/28/20 05:17 BUN 23 mg/dL (7-18) H 04/28/20 05:17 Creatinine 1.43 mg/dL (0.55-1.3) H 04/28/20 05:17 Glucose 163 mg/dL (74-106) H 04/28/20 05:17 Magnesium 2.4 mg/dL (1.8-2.4) 04/27/20 15:00 Total Bilirubin 0.6 mg/dL (0.2-1.0) 04/28/20 05:17 AST 43 U/L (15-37) H 04/28/20 05:17 ALT 43 U/L (12-78) 04/28/20 05:17 Alkaline Phosphatase 59 U/L (45-117) 04/28/20 05:17 Lipase 238 U/L (73-393) 04/27/20 15:00 Home Medications: Losartan Potassium [Cozaar] 50 mg PO DAILY 04/27/20 hydroCHLOROthiazide [Hydrochlorothiazide*] 12.5 mg PO DAILY 04/27/20 Ascorbic Acid [Vitamin C*] 500 mg PO TID #90 tablet 04/29/20 Aspirin [Aspirin EC 81 MG] 81 mg PO DAILY #90 tablet. 04/29/20 Cholecalciferol (Vitamin D3) [Vitamin D 1000 Iu Tab] 2,000 unit PO DAILY #60 tab 04/29/20 Thiamine HCl 100 mg PO DAILY #30 tablet 04/29/20 predniSONE [Prednisone*] 20 mg PO SEECOM #21 tab 04/29/20 New Medications: Aspirin [Aspirin EC 81 MG] 81 mg PO DAILY #90 tablet. predniSONE [Prednisone*] 20 mg PO SEECOM #21 tab Thiamine HCl 100 mg PO DAILY #30 tablet Ascorbic Acid [Vitamin C*] 500 mg PO TID #90 tablet Cholecalciferol (Vitamin D3) [Vitamin D 1000 Iu Tab] 2,000 unit PO DAILY #60 tab Patient Discharge Instructions: 1. Recommend follow up with PCP in 1 week to follow up this hospitalization. 2. Patient presented with shortness of breath. Patient had COVID 19 pneumonia with mild acute respiratory failure/hypoxia. Patient was admitted for further evaluation and treatment. Acute renal insufficiency, leukopenia with thrombocytopenia, and were noted. All likely related to COVID 19 pneumonia. Suspect underlying acute on chronic renal disease stage III. Pulmonology was consulted. During the course of his stay patient received IV steroids with improvement. Patient with history of hypertension. Losartan and hydrochlorothiazide were discontinued during his stay. Blood pressures have been stable without medication at this time. At discharge patient requiring home oxygen. Currently on 2 L per nasal cannula. Renal function appears to be at baseline. At discharge patient will continue with home oxygen to maintain sats above 93%. This can be weaned off with the help of his PCP or pulmonology. At discharge patient will continue with aspirin 81 mg daily. The patient will also continue with prednisone 20 mg 1 pill twice daily for 7 days then 10 mg 1 pill twice daily for 7 days. Patient will continue with supplementation including vitamin-C, vitamin-D, thiamine. Recommend follow up with PCP in 1-2 weeks to follow up this hospitalization. Recommend to recheck lab-CBC in 1-2 weeks to monitors progress. 3. As mentioned above patient with acute renal insufficiency. Previous lab reviewed. Patient was hydrated. Blood pressure medication including losartan hydrochlorothiazide were held during his stay. Blood pressures have remained stable. Patient likely with underlying acute on chronic renal disease stage III. As mentioned above patient not requiring any blood pressure medication at this time. Losartan and hydrochlorothiazide have been discontinued at discharge. Recommend to monitor his blood pressure daily. He is to keep a blood pressure log. If his blood pressures are consistently above 140/90, losartan can be restarted. Recommend follow up with PCP to further monitor and address. Patient would benefit with nephrology evaluation as an outpatient. Recommend no excessive use of nonsteroidal anti-inflammatories. Future medications may need to be renally dose. Recommend to recheck lab-BMP in 1-2 weeks to monitors progress. 4. CT scan revealed 3.5 cm mass to the right upper kidney. This is likely incidental cysts. Recommend renal ultrasound as an outpatient to further address. His PCP can help with this. 5. Patient noted to have fatty liver. Education provided. Diet: AHA Activity: Ad agnes Followup: Siomara Zhao DO [Primary Care Provider] - Time spent managing pt's care (in minutes): 55
[2020-04-29 14:09] VITALS: BP 119/86; TEMP 98.7
== END 2020-04-29 15:58 | disposition home or self-care (01) | DRG 177 ==
LOC: ER 14:15 → ERHOLD 17:33 → 4TH 19:42
PROVIDERS: ADMIT Family Medicine; ATTEND Family Medicine
DX: U07.1 COVID-19 (principal); J12.89 Other viral pneumonia; J96.01 Acute respiratory failure with hypoxia; E87.0 Hyperosmolality and hypernatremia; E87.6 Hypokalemia; K76.0 Fatty (change of) liver, not elsewhere classified; D69.6 Thrombocytopenia, unspecified; I12.9 Hypertensive chronic kidney disease with stage 1 through stage 4 chronic kidney disease, or unspecified chronic kidney disease; N18.30 Chronic kidney disease, stage 3 unspecified; N28.9 Disorder of kidney and ureter, unspecified; D72.819 Decreased white blood cell count, unspecified; E66.9 Obesity, unspecified; Z68.39 Body mass index [BMI] 39.0-39.9, adult; Z79.899 Other long term (current) drug therapy; Z79.82 Long term (current) use of aspirin; Z79.52 Long term (current) use of systemic steroids
CPT/HCPCS: 36415; 71045; 71275; 74176; 76377; 80048; 80053; 80076; 81003; 81015; 82550; 82728; 82947; 83690; 83735; 84145; 84484; 85025; 85610; 86140; 87086; 87088; 93005; 94760; 96374; 99285; J0456; J0696; J1644; J2920; J2930; J7030; J7040; J7050; Q9967

== ENCOUNTER 2024-06-23 18:32 | Inpatient (IN) | payer OTHER ==
--- OUTSIDE RECORDS SUMMARY | 2024-06-23 18:36 | XMS REPORT | Continuity of Care Document ---
Author Name Unknown Address [address] [facility] [place]. [address] [place] [address] [facility] thconnect Address [address] [facility] [address] [place] [address] Care Team Providers Care Odd Shoe Examiner Name Role Phone Christina Blake Attending Clinician Unavailable Siomara Zhao Attending Clinician Unavailable Payers Payer Name Policy Type Policy Number Effective Date Expirati on Date Source [employer] Medicare Replace 53 [id number] [facility] Problems Condition Name Condition Details Condition Category Status Onset Date Resolution Date Last Treatment Date Treating Clinician Comments Source Chronic kidney disease stage 3A Stage 3a chronic kidney disease Problem [facility] [id number] History of colon polyps Problem [facility] [id number] Diverticul osis Problem [facility] [id number] Lower urinary tract symptoms (LUTS) Problem [facility] [id number] Recurrent UTI Problem [facility] [id number] Other ejaculator y dysfunctio n Problem [facility] Gastroesop hageal reflux disease Gastroesop hageal reflux disease, esophagiti s presence not specified Problem [facility] Seasonal allergy Seasonal allergies Problem [facility] [id number] 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 Problem [facility] [id number] Urethritis Problem Comm on [facility] [id number] BPH loc w urin obs/LUTS Problem [facility] [id number] Hearing difficulty of both ears Problem [facility] [id number] Neuropathy Problem Com [facility] [id number] Establishi ng care with new doctor, encounter for Problem [facility] [id number] Essential hypertensi on Problem [facility] [id number] Morbid obesity due to excess calories Problem [facility] [id number] Hyperurice chanda Problem [facility] [id number] 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) Problem [facility] [id number] Other chronic pain Problem [facility] [id number] Acute bacterial conjunctiv itis of right eye Problem [facility] [id number] Elevated uric acid in blood Problem [facility] [id number] Hypertensi on, unspecifie d type Problem [facility] [id number] Right kidney stone Problem [facility] [id number] Hospital discharge follow-up Problem [facility] [id number] Fatty liver Problem [facility] [id number] Vitamin D deficiency Problem [facility] Social History Social Habit Start Date Stop Date Quantity Comments Source History of Tobacco Use [facility] Sex Assigned At [facility] Smoking Status Start Date Stop Date Source Never Smoker [facility] Former Smoker 2022-06-16 00:00:00 2022-06-16 00:00:00 [facility] Current Smoker 2021-08-14 00:00:00 [facility] Medications Ordered Medication Name Filled Medication Name Start Date Stop Date Current Medication? Ordering Clinician Indication Dosage Frequency Signature (SIG) Comments Components Source hydroCHLORO thiazide 12.5 MG hydroCHLORO thiazide 12.5 MG No 1{table t_in_th e_morni ng} QD hydroCHLOR Othiazide 12.5 MG Losartan Potassium 50 MG Losartan Potassium 50 MG No 1{table t} QD Losartan Potassium 50 MG Cyclobenzap rine HCl 10 MG Cyclobenzap rine HCl 10 MG No 1{table t_as_ne eded} BID Cyclobenza frantz HCl 10 MG Immunizations Ordered Immunization Name Filled Immunization Name Date Status Comments Source Moderna COVID-19 Vaccine (Low Dose Booster) Moderna COVID-19 Vaccine (Low Dose Booster) 2021-05-14 09:52:00 Completed [facility] Moderna COVID-19 Vaccine (Low Dose Booster) Moderna COVID-19 Vaccine (Low Dose Booster) 2021-05-14 09:52:00 Completed [facility] Moderna COVID-19 Vaccine (Low Dose Booster) Moderna COVID-19 Vaccine (Low Dose Booster) 2021-05-14 09:52:00 Completed [facility] Moderna COVID-19 Vaccine (Low Dose Booster) Moderna COVID-19 Vaccine (Low Dose Booster) 2021-05-14 09:52:00 Completed [facility] Moderna COVID-19 Vaccine (Low Dose Booster) Moderna COVID-19 Vaccine (Low Dose Booster) 2021-05-14 09:52:00 Completed [facility] Moderna COVID-19 Vaccine (Low Dose Booster) Moderna COVID-19 Vaccine (Low Dose Booster) 2021-05-14 09:52:00 Completed [facility] Moderna COVID-19 Vaccine (Low Dose Booster) Moderna COVID-19 Vaccine (Low Dose Booster) 2021-05-14 09:52:00 Completed [facility] Moderna COVID-19 Vaccine (Low Dose Booster) Moderna COVID-19 Vaccine (Low Dose Booster) 2021-05-14 09:52:00 Completed [facility] Moderna COVID-19 Vaccine (Low Dose Booster) Moderna COVID-19 Vaccine (Low Dose Booster) 2021-05-14 09:52:00 [facility] Moderna COVID-19 Vaccine (Low Dose Booster) 2021-05-14 09:52:00 Completed [facility] Prevnar 13 -Pneumonia Vaccine Prevnar 13 -Pneumonia Vaccine 2019-12-27 12:13:00 Completed [facility] Prevnar 13 -Pneumonia Vaccine Prevnar 13 -Pneumonia Vaccine 2019-12-27 12:13:00 Completed [facility] Prevnar 13 -Pneumonia Vaccine Prevnar 13 -Pneumonia Vaccine 2019-12-27 12:13:00 Completed [facility] Prevnar 13 -Pneumonia Vaccine Prevnar 13 -Pneumonia Vaccine 2019-12-27 12:13:00 Completed [facility] Prevnar 13 -Pneumonia Vaccine Prevnar 13 -Pneumonia Vaccine 2019-12-27 12:13:00 Completed [facility] Prevnar 13 -Pneumonia Vaccine Prevnar 13 -Pneumonia Vaccine 2019-12-27 12:13:00 Completed [facility] Prevnar 13 -Pneumonia Vaccine Prevnar 13 -Pneumonia Vaccine 2019-12-27 12:13:00 Completed [facility] Prevnar 13 -Pneumonia Vaccine Prevnar 13 -Pneumonia Vaccine 2019-12-27 12:13:00 Completed [facility] Prevnar 13 -Pneumonia Vaccine Prevnar 13 -Pneumonia Vaccine 2019-12-27 12:13:00 Completed [facility] Prevnar 13 -Pneumonia Vaccine Prevnar 13 -Pneumonia Vaccine 2019-12-27 12:13:00 Completed [facility] Prevnar 13 -Pneumonia Vaccine Prevnar 13 -Pneumonia Vaccine 2019-12-27 00:00:00 Completed [facility] Moderna COVID-19 Vaccine (Low Dose Booster) Moderna COVID-19 Vaccine (Low Dose Booster) Unknown Completed [facility] Prevnar 13 -Pneumonia Vaccine Prevnar 13 -Pneumonia Vaccine Unknown Completed [facility] Moderna COVID-19 Vaccine (Low Dose Booster) Moderna COVID-19 Vaccine (Low Dose Booster) Unknown Completed [facility] Prevnar 13 -Pneumonia Vaccine Prevnar 13 -Pneumonia Vaccine Unknown Completed [facility] Moderna COVID-19 Vaccine (Low Dose Booster) Moderna COVID-19 Vaccine (Low Dose Booster) Unknown Completed [facility] Prevnar 13 -Pneumonia Vaccine Prevnar 13 -Pneumonia Vaccine Unknown Completed [facility] Moderna COVID-19 Vaccine (Low Dose Booster) Moderna COVID-19 Vaccine (Low Dose Booster) Unknown Completed [facility] Prevnar 13 -Pneumonia Vaccine Prevnar 13 -Pneumonia Vaccine Unknown Completed [facility] Moderna COVID-19 Vaccine (Low Dose Booster) Moderna COVID-19 Vaccine (Low Dose Booster) Unknown Completed [facility] Prevnar 13 -Pneumonia Vaccine Prevnar 13 -Pneumonia Vaccine Unknown Completed [facility] Moderna COVID-19 Vaccine (Low Dose Booster) Moderna COVID-19 Vaccine (Low Dose Booster) Unknown Completed [facility] Prevnar 13 -Pneumonia Vaccine Prevnar 13 -Pneumonia Vaccine Unknown Completed [facility] Moderna COVID-19 Vaccine (Low Dose Booster) Moderna COVID-19 Vaccine (Low Dose Booster) Unknown Completed [facility] Prevnar 13 -Pneumonia Vaccine Prevnar 13 -Pneumonia Vaccine Unknown Completed [facility] MODERNA COVID-19 VACCINE (LOW DOSE BOOSTER) MODERNA COVID-19 VACCINE (LOW DOSE BOOSTER) Unknown Completed [facility] Prevnar 13 -Pneumonia Vaccine Prevnar 13 -Pneumonia Vaccine Unknown Completed [facility] MODERNA COVID-19 VACCINE (LOW DOSE BOOSTER) MODERNA COVID-19 VACCINE (LOW DOSE BOOSTER) Unknown Completed [facility] Prevnar 13 -Pneumonia Vaccine Prevnar 13 -Pneumonia Vaccine Unknown Completed [facility] MODERNA COVID-19 VACCINE (LOW DOSE BOOSTER) MODERNA COVID-19 VACCINE (LOW DOSE BOOSTER) Unknown Completed [facility] Prevnar 13 -Pneumonia Vaccine Prevnar 13 -Pneumonia Vaccine Unknown Completed [facility] Vital Signs Vital Name Observation Time Observation Value Betty quigley height 2024-05-09 08:20:00 70 [in_i] Commo n [facility] weight 2024-05-09 08:20:00 286 [lb_av] Comm on [facility] temperature 2024-05-09 08:20:00 97.3 [degF] Com [facility] bmi 2024-05-09 08:20:00 41.03 kg/m2 Comm on [facility] oximetry 2024-05-09 08:20:00 95 % Commo n [facility] respiratory rate 2024-05-09 08:20:00 16 /min [facility] blood pressure systolic 2024-05-09 08:20:00 132 mm[Hg] [facility] blood pressure diastolic 2024-05-09 08:20:00 78 mm[Hg] [facility] height 2024-04-10 15:20:00 70 [in_i] Commo n [facility] weight 2024-04-10 15:20:00 280 [lb_av] Comm on [facility] 2024-04-10 15:20:00 40.17 kg/m2 Comm on [facility] height 2024-02-03 16:45:00 70 [in_i] Commo n [facility] weight 2024-02-03 16:45:00 282.2 [lb_av] Co mmon [facility] temperature 2024-02-03 16:45:00 98.7 [degF] Com mon [facility] bmi 2024-02-03 16:45:00 40.49 kg/m2 Comm on [facility] oximetry 2024-02-03 16:45:00 93 % Commo n [facility] respiratory rate 2024-02-03 16:45:00 16 /min Common [facility] blood pressure systolic 2024-02-03 16:45:00 136 mm[Hg] Common [facility] blood pressure diastolic 2024-02-03 16:45:00 82 mm[Hg] Common [facility] height 2024-01-18 15:30:00 70 [in_i] Commo n [facility] weight 2024-01-18 15:30:00 278 [lb_av] Comm on [facility] bmi 2024-01-18 15:30:00 39.88 kg/m2 Comm on [facility] height 2024-01-04 15:40:00 70 [in_i] Commo n [facility] weight 2024-01-04 15:40:00 280 [lb_av] Comm on [facility] bmi 2024-01-04 15:40:00 40.17 kg/m2 Comm on [facility] height 2023-12-27 16:15:00 70 [in_i] Commo n [facility] weight 2023-12-27 16:15:00 279.4 [lb_av] Co mmon [facility] temperature 2023-12-27 16:15:00 97.3 [degF] Com mon [facility] bmi 2023-12-27 16:15:00 40.09 kg/m2 Comm on [facility] oximetry 2023-12-27 16:15:00 95 % Commo n [facility] respiratory rate 2023-12-27 16:15:00 16 /min [facility] blood pressure systolic 2023-12-27 16:15:00 124 mm[Hg] Common [facility] blood pressure diastolic 2023-12-27 16:15:00 76 mm[Hg] Common [facility] height 2023-10-01 14:40:00 70 [in_i] Commo n [facility] weight 2023-10-01 14:40:00 281.0 [lb_av] Co [facility] temperature 2023-10-01 14:40:00 97.8 [degF] Com [facility] bmi 2023-10-01 14:40:00 40.31 kg/m2 Comm on [facility] oximetry 2023-10-01 14:40:00 96 % Commo n [facility] respiratory rate 2023-10-01 14:40:00 16 /min Common [facility] blood pressure systolic 2023-10-01 14:40:00 126 mm[Hg] [facility] blood pressure diastolic 2023-10-01 14:40:00 84 mm[Hg] Common [facility] height 2023-10-01 14:40:00 70 [in_i] Commo n [facility] weight 2023-10-01 14:40:00 281.0 [lb_av] Co [facility] temperature 2023-10-01 14:40:00 97.8 [degF] Com [facility] bmi 2023-10-01 14:40:00 40.31 kg/m2 Comm on [facility] oximetry 2023-10-01 14:40:00 96 % Commo n [facility] respiratory rate 2023-10-01 14:40:00 16 /min Common [facility] blood pressure systolic 2023-10-01 14:40:00 126 mm[Hg] Common [facility] blood pressure diastolic 2023-10-01 14:40:00 84 mm[Hg] [facility] height 2023-07-02 16:40:00 70 [in_i] Commo n [facility] weight 2023-07-02 16:40:00 290 [lb_av] Comm on [facility] temperature 2023-07-02 16:40:00 98.7 [degF] Com mon [facility] bmi 2023-07-02 16:40:00 41.61 kg/m2 Comm on [facility] height 2023-06-18 16:40:00 70 [in_i] Commo n [facility] weight 2023-06-18 16:40:00 284 [lb_av] Comm on [facility] bmi 2023-06-18 16:40:00 40.75 kg/m2 Comm on [facility] height 2023-03-01 16:40:00 70 [in_i] Commo n [facility] weight 2023-03-01 16:40:00 385 [lb_av] Comm on [facility] bmi 2023-03-01 16:40:00 55.24 kg/m2 Comm on [facility] height 2022-11-30 16:30:00 70 [in_i] Commo n [facility] weight 2022-11-30 16:30:00 289 [lb_av] Comm on [facility] temperature 2022-11-30 16:30:00 98.6 [degF] Com mon [facility] bmi 2022-11-30 16:30:00 41.46 kg/m2 Comm on [facility] oximetry 2022-11-30 16:30:00 99 % Commo n [facility] respiratory rate 2022-11-30 16:30:00 18 /min Common [facility] blood pressure systolic 2022-11-30 16:30:00 143 mm[Hg] Common [facility] blood pressure diastolic 2022-11-30 16:30:00 91 mm[Hg] Common [facility] height 2022-09-16 08:00:00 70 [in_i] Commo n [facility] weight 2022-09-16 08:00:00 288 [lb_av] Comm on [facility] temperature 2022-09-16 08:00:00 98.4 [degF] Com mon [facility] bmi 2022-09-16 08:00:00 41.32 kg/m2 Comm on [facility] oximetry 2022-09-16 08:00:00 97 % Commo n [facility] respiratory rate 2022-09-16 08:00:00 17 /min Common [facility] blood pressure systolic 2022-09-16 08:00:00 132 mm[Hg] [facility] blood pressure diastolic 2022-09-16 08:00:00 78 mm[Hg] [facility] height 2022-09-16 08:00:00 70 [in_i] Commo n [facility] weight 2022-09-16 08:00:00 288 [lb_av] Comm on [facility] temperature 2022-09-16 08:00:00 98.4 [degF] Com mon [facility] bmi 2022-09-16 08:00:00 41.32 kg/m2 Comm on [facility] oximetry 2022-09-16 08:00:00 97 % Commo n [facility] respiratory rate 2022-09-16 08:00:00 17 /min Common [facility] blood pressure systolic 2022-09-16 08:00:00 132 mm[Hg] Common [facility] blood pressure diastolic 2022-09-16 08:00:00 78 mm[Hg] Common [facility] height 2022-06-16 11:20:00 70 [in_i] Commo n [facility] weight 2022-06-16 11:20:00 285 [lb_av] Comm on [facility] temperature 2022-06-16 11:20:00 98.1 [degF] Com mon [facility] bmi 2022-06-16 11:20:00 40.89 kg/m2 Comm on [facility] oximetry 2022-06-16 11:20:00 95 % Commo n [facility] respiratory rate 2022-06-16 11:20:00 17 /min Common [facility] blood pressure systolic 2022-06-16 11:20:00 134 mm[Hg] Common [facility] blood pressure diastolic 2022-06-16 11:20:00 80 mm[Hg] [facility] height 2022-04-23 17:00:00 70 [in_i] Commo n [facility] weight 2022-04-23 17:00:00 293 [lb_av] Comm on [facility] temperature 2022-04-23 17:00:00 98.3 [degF] Com mon [facility] bmi 2022-04-23 17:00:00 42.04 kg/m2 Comm on [facility] oximetry 2022-04-23 17:00:00 96 % Commo n [facility] respiratory rate 2022-04-23 17:00:00 16 /min Common [facility] blood pressure systolic 2022-04-23 17:00:00 138 mm[Hg] [facility] blood pressure diastolic 2022-04-23 17:00:00 99 mm[Hg] [facility] height 2022-02-12 16:00:00 70 [in_i] Commo n [facility] weight 2022-02-12 16:00:00 293 [lb_av] Comm on [facility] temperature 2022-02-12 16:00:00 98.4 [degF] Com mon [facility] bmi 2022-02-12 16:00:00 42.04 kg/m2 Comm on [facility] oximetry 2022-02-12 16:00:00 95 % Commo n [facility] blood pressure systolic 2022-02-12 16:00:00 118 mm[Hg] [facility] blood pressure diastolic 2022-02-12 16:00:00 74 mm[Hg] [facility] height 2021-11-26 14:30:00 70 [in_i] Commo n [facility] weight 2021-11-26 14:30:00 296 [lb_av] Comm on [facility] temperature 2021-11-26 14:30:00 98.4 [degF] Com mon [facility] bmi 2021-11-26 14:30:00 42.47 kg/m2 Comm on [facility] oximetry 2021-11-26 14:30:00 97 % Commo n [facility] respiratory rate 2021-11-26 14:30:00 16 /min Common [facility] blood pressure systolic 2021-11-26 14:30:00 140 mm[Hg] [facility] blood pressure diastolic 2021-11-26 14:30:00 84 mm[Hg] Common [facility] height 2021-09-16 16:20:00 70 [in_i] Commo n [facility] weight 2021-09-16 16:20:00 293.8 [lb_av] Co mmon [facility] temperature 2021-09-16 16:20:00 96 [degF] Comm on [facility] bmi 2021-09-16 16:20:00 42.15 kg/m2 Comm on [facility] oximetry 2021-09-16 16:20:00 98 % Commo n [facility] respiratory rate 2021-09-16 16:20:00 16 /min Common [facility] blood pressure systolic 2021-09-16 16:20:00 138 mm[Hg] [facility] blood pressure diastolic 2021-09-16 16:20:00 74 mm[Hg] Common [facility] height 2021-08-14 10:00:00 70 [in_i] Commo n [facility] weight 2021-08-14 10:00:00 297.6 [lb_av] Co mmon [facility] temperature 2021-08-14 10:00:00 97.3 [degF] Com mon [facility] bmi 2021-08-14 10:00:00 42.70 kg/m2 Comm on [facility] oximetry 2021-08-14 10:00:00 95 % Commo n [facility] respiratory rate 2021-08-14 10:00:00 16 /min [facility] blood pressure systolic 2021-08-14 10:00:00 120 mm[Hg] [facility] blood pressure diastolic 2021-08-14 10:00:00 79 mm[Hg] [facility] height 2021-07-29 10:40:00 70 [in_i] Commo n [facility] weight 2021-07-29 10:40:00 303 [lb_av] Comm on [facility] temperature 2021-07-29 10:40:00 98 [degF] Comm on [facility] bmi 2021-07-29 10:40:00 43.47 kg/m2 Comm on [facility] oximetry 2021-07-29 10:40:00 98 % Commo n [facility] blood pressure systolic 2021-07-29 10:40:00 131 mm[Hg] Common [facility] blood pressure diastolic 2021-07-29 10:40:00 82 mm[Hg] Common [facility] height 2021-07-17 13:20:00 70 [in_i] Commo n [facility] weight 2021-07-17 13:20:00 303 [lb_av] Comm on [facility] temperature 2021-07-17 13:20:00 97.2 [degF] Com mon [facility] bmi 2021-07-17 13:20:00 43.47 kg/m2 Comm on [facility] oximetry 2021-07-17 13:20:00 97 % Commo n [facility] respiratory rate 2021-07-17 13:20:00 20 /min Common [facility] blood pressure systolic 2021-07-17 13:20:00 141 mm[Hg] Common [facility] blood pressure diastolic 2021-07-17 13:20:00 86 mm[Hg] Common [facility] height 2021-04-16 08:40:00 70 [in_i] Commo n [facility] weight 2021-04-16 08:40:00 298 [lb_av] Comm on [facility] temperature 2021-04-16 08:40:00 97 [degF] Comm on [facility] bmi 2021-04-16 08:40:00 42.75 kg/m2 Comm on [facility] height 2021-02-20 13:50:00 70 [in_i] Commo n [facility] weight 2021-02-20 13:50:00 298.4 [lb_av] Co mmon [facility] temperature 2021-02-20 13:50:00 97.4 [degF] Com mon [facility] bmi 2021-02-20 13:50:00 42.81 kg/m2 Comm on [facility] oximetry 2021-02-20 13:50:00 95 % Commo n [facility] blood pressure systolic 2021-02-20 13:50:00 128 mm[Hg] Common [facility] blood pressure diastolic 2021-02-20 13:50:00 84 mm[Hg] Common [facility] height 2021-01-15 08:00:00 70 [in_i] Commo n [facility] weight 2021-01-15 08:00:00 300 [lb_av] Comm on [facility] temperature 2021-01-15 08:00:00 97 [degF] Comm on [facility] bmi 2021-01-15 08:00:00 43.04 kg/m2 Comm on [facility] Encounters Start Date/Time End Date/Time Encounter Type Admission Type Attending [facility] Care Facility Care Department Encounter ID Source 2024-05-09 07:59:00 Outpatient BlakeChristina rodgers [facility] [id number] [facility] 2024-05-04 08:49:00 Outpatient BlakeChristina [facility] [id number] [facility] 2023-11-17 09:35:00 Outpatient BlakeChristina rodgers [facility] [id number] [facility] 2022-09-14 10:08:01 Outpatient BlakeChristina [facility]C [facility] [id number] [facility] 2022-06-15 09:38:01 Outpatient BlakeChristina [facility]C [facility] [id number] [facility] 2022-05-13 10:47:01 Outpatient BlakeChristina rodgers [facility] [id number] [facility] 2021-11-26 14:44:01 Outpatient Zhao Na [facility] [id number] [facility] 2021-09-16 16:07:00 Outpatient Cece Na [facility] [id number] [facility] 2021-08-14 14:56:00 Outpatient Cece Na [facility] [id number] [facility] 2021-07-15 11:26:01 Outpatient Zhao, Na [facility] [id number] [facility] 2021-06-04 14:33:05 Outpatient Zhao, Na [facility] [id number] [facility] 2021-06-04 14:32:03 Outpatient Zhao, Na [facility] [id number] [facility] 2021-06-04 14:31:04 Outpatient Zhao, Na [facility] [id number] [facility] 2021-06-04 14:24:01 Outpatient Zaho, Na [facility] [id number] [facility] 2021-06-04 14:00:34 Outpatient Zhao, Na [facility] [id number] [facility] 2021-06-04 13:09:20 Outpatient Zhao, Na [facility] [id number] [facility] 2021-06-04 12:34:09 Outpatient Zhao, Na [facility] [id number] [facility] 2021-06-04 12:17:47 Outpatient Zhao, Na [facility] [id number] [facility] 2021-06-04 12:17:12 Outpatient Zhao, Na [facility] [id number] [facility] 2021-06-04 12:17:04 Outpatient Zhao, Na [facility] [id number] [facility] 2021-06-04 12:16:37 Outpatient Zhao, Na [facility] [id number] [facility] 2021-06-04 12:16:17 Outpatient Zhao, Na STLMLC STLMLC [id number] [facility] 2021-06-04 12:15:39 Outpatient Zhao, Na STLMLC STLMLC [id number] [facility] 2021-06-04 11:38:09 Outpatient Zhao, Na STLMLC STLMLC [id number] [facility] 2021-06-04 11:36:18 Outpatient Zhao, Na STLMLC STLMLC [id number] [facility] 2024-05-09 00:00:00 2024-05-09 00:00:00 OFFICE VISIT ESTAB PT LEVEL 3 STLMLC STLMLC [id number] [facility] 2024-05-09 00:00:00 2024-05-09 00:00:00 (TEL) STLMLC STLMLC [id number] [facility] 2024-05-04 00:00:00 2024-05-04 00:00:00 (TEL) STLMLC STLMLC [id number] [facility] 2024-04-10 00:00:00 2024-04-10 00:00:00 OFFICE VISIT ESTAB PT LEVEL 4 STLMLC STLMLC [id number] [facility] 2024-03-26 00:00:00 2024-03-26 00:00:00 (WEB) STLMLC STLMLC [id number] [facility] 2024-02-09 00:00:00 2024-02-09 00:00:00 (TEL) STLMLC STLMLC [id number] [facility] 2024-02-03 00:00:00 2024-02-03 00:00:00 OFFICE VISIT ESTAB PT LEVEL 3 STLMLC STLMLC [id number] [facility] 2024-01-18 00:00:00 2024-01-18 00:00:00 OFFICE VISIT ESTAB PT LEVEL 4 STLMLC STLMLC [id number] [facility] 2024-01-17 00:00:00 2024-01-17 00:00:00 (TEL) STLMLC STLMLC [id number] [facility] 2024-01-17 00:00:00 2024-01-17 00:00:00 (WEB) STLMLC STLMLC [id number] [facility] 2024-01-16 00:00:00 2024-01-16 00:00:00 (WEB) STLMLC STLMLC [id number] [facility] 2024-01-04 00:00:00 2024-01-04 00:00:00 OFFICE VISIT ESTAB PT LEVEL 4 STLMLC STLMLC [id number] [facility] 2023-12-27 00:00:00 2023-12-27 00:00:00 OFFICE VISIT ESTAB PT LEVEL 4 STLMLC STLMLC [id number] [facility] 2023-12-23 00:00:00 2023-12-23 00:00:00 (TEL) STLMLC STLMLC [id number] [facility] 2023-10-25 00:00:00 2023-10-25 00:00:00 (WEB) STLMLC STLMLC [id number] [facility] 2023-10-01 00:00:00 2023-10-01 00:00:00 SUB ANNUAL [facility] VISIT STLMLC STLMLC [id number] [facility] 2023-10-01 00:00:00 2023-10-01 00:00:00 OFFICE VISIT ESTAB PT LEVEL 4 STLMLC STLMLC [id number] [facility] 2023-07-02 00:00:00 2023-07-02 00:00:00 OFFICE VISIT ESTAB PT LEVEL 3 STLMLC STLMLC [id number] [facility] 2023-06-18 00:00:00 2023-06-18 00:00:00 OFFICE VISIT ESTAB PT LEVEL 3 STLMLC STLMLC [id number] [facility] 2023-03-01 00:00:00 2023-03-01 00:00:00 OFFICE VISIT ESTAB PT LEVEL 4 STLMLC STLMLC [id number] [facility] 2022-12-17 00:00:00 2022-12-17 00:00:00 (TEL) STLMLC STLMLC [id number] [facility] 2022-11-30 00:00:00 2022-11-30 00:00:00 OFFICE VISIT ESTAB PT LEVEL 2 STLMLC STLMLC [id number] [facility] 2022-10-23 00:00:00 2022-10-23 00:00:00 (TEL) STLMLC STLMLC [id number] [facility] 2022-10-12 00:00:00 2022-10-12 00:00:00 (TEL) STLMLC STLMLC [id number] [facility] 2022-09-16 00:00:00 2022-09-16 00:00:00 OFFICE VISIT ESTAB PT LEVEL 3 STLMLC STLMLC [id number] [facility] 2022-09-16 00:00:00 2022-09-16 00:00:00 SUB ANNUAL [facility] VISIT STLMLC STLMLC [id number] [facility] 2022-06-16 00:00:00 2022-06-16 00:00:00 OFFICE VISIT ESTAB PT LEVEL 4 STLMLC STLMLC [id number] [facility] 2022-04-23 00:00:00 2022-04-23 00:00:00 OFFICE VISIT ESTAB PT LEVEL 4 STLMLC STLMLC [id number] [facility] 2022-03-13 00:00:00 2022-03-13 00:00:00 (TEL) STLMLC STLMLC [id number] [facility] 2022-03-13 00:00:00 2022-03-13 00:00:00 OFFICE VISIT EST PT LEVEL 3 STLMLC STLMLC [id number] [facility] 2022-02-12 00:00:00 2022-02-12 00:00:00 OFFICE VISIT EST PT LEVEL 3 STLMLC STLMLC [id number] [facility] 2022-01-12 00:00:00 2022-01-12 00:00:00 (WEB) STLMLC STLMLC [id number] [facility] 2021-11-26 00:00:00 2021-11-26 00:00:00 OFFICE VISIT NEW PT LEVEL 3 STLMLC STLMLC [id number] [facility] 2021-11-24 00:00:00 2021-11-24 00:00:00 (TEL) STLMLC STLMLC [id number] [facility] 2021-09-16 00:00:00 2021-09-16 00:00:00 OFFICE VISIT ESTAB PT LEVEL 2 STLMLC STLMLC [id number] [facility] 2021-09-15 00:00:00 2021-09-15 00:00:00 (TEL) STLMLC STLMLC [id number] [facility] 2021-08-18 00:00:00 2021-08-18 00:00:00 (TEL) STLMLC STLMLC [id number] [facility] 2021-08-14 00:00:00 2021-08-14 00:00:00 (TEL) STLMLC STLMLC [id number] [facility] 2021-08-14 00:00:00 2021-08-14 00:00:00 OFFICE VISIT ESTAB PT LEVEL 2 STLMLC STLMLC [id number] [facility] 2021-08-07 00:00:00 2021-08-07 00:00:00 (TEL) STLMLC STLMLC [id number] [facility] 2021-07-29 00:00:00 2021-07-29 00:00:00 OFFICE VISIT EST PT LEVEL 3 STLMLC STLMLC [id number] [facility] 2021-07-28 00:00:00 2021-07-28 00:00:00 (TEL) STLMLC STLMLC [id number] [facility] 2021-07-27 00:00:00 2021-07-27 00:00:00 (WEB) STLMLC STLMLC [id number] [facility] 2021-07-17 00:00:00 2021-07-17 00:00:00 OFFICE VISIT ESTAB PT LEVEL 4 STLMLC STLMLC [id number] [facility] 2021-05-21 00:00:00 2021-05-21 00:00:00 (TEL) STLMLC STLMLC [id number] [facility] 2021-05-19 00:00:00 2021-05-19 00:00:00 (TEL) STLMLC STLMLC [id number] [facility] 2021-05-19 00:00:00 2021-05-19 00:00:00 (TEL) STLMLC STLMLC [id number] [facility] 2021-05-19 00:00:00 2021-05-19 00:00:00 (WEB) STLMLC STLMLC [id number] [facility] 2021-05-14 00:00:00 2021-05-14 00:00:00 (TEL) STLMLC STLMLC [id number] [facility] 2021-05-14 00:00:00 2021-05-14 00:00:00 (COVID Inj) COVID Injection STLMLC STLMLC [id number] [facility] 2021-04-18 00:00:00 2021-04-18 00:00:00 (TEL) STLMLC STLMLC [id number] [facility] 2021-04-16 00:00:00 2021-04-16 00:00:00 (TEL) STLMLC STLMLC [id number] [facility] 2021-04-16 00:00:00 2021-04-16 00:00:00 OFFICE VISIT ESTAB PT LEVEL 4 STLMLC STLMLC [id number] [facility] 2021-02-25 00:00:00 2021-02-25 00:00:00 (TEL) STLMLC STLMLC [id number] [facility] 2021-02-20 00:00:00 2021-02-20 00:00:00 OFFICE VISIT EST PT LEVEL 3 STLMLC STLMLC [id number] [facility] 2021-02-20 00:00:00 2021-02-20 00:00:00 (WEB) STLMLC STLMLC [id number] [facility] 2021-01-15 00:00:00 2021-01-15 00:00:00 OFFICE VISIT EST PT LEVEL 3 STLMLC STLMLC [id number] [facility] 2020-10-10 00:00:00 2020-10-10 00:00:00 Outpatient STLMLC STLMLC [id number] [facility] 2020-08-15 00:00:00 2020-08-15 00:00:00 Outpatient STLMLC STLMLC [id number] [facility] 2020-08-13 00:00:00 2020-08-13 00:00:00 Outpatient STLMLC STLMLC [id number] [facility] 2020-07-11 00:00:00 2020-07-11 00:00:00 Outpatient STLMLC STLMLC [id number] [facility] 2020-07-09 00:00:00 2020-07-09 00:00:00 Outpatient STLMLC STLMLC [id number] [facility] 2020-05-14 00:00:00 2020-05-14 00:00:00 Outpatient STLMLC STLMLC [id number] [facility] 2020-05-08 00:00:00 2020-05-08 00:00:00 Outpatient STLMLC STLMLC [id number] [facility] 2020-05-07 00:00:00 2020-05-07 00:00:00 Outpatient STLMLC STLMLC [id number] [facility] 2020-04-27 00:00:00 2020-04-27 00:00:00 Outpatient STLMLC STLMLC [id number] [facility] 2020-02-15 00:00:00 2020-02-15 00:00:00 Outpatient STLMLC STLMLC [id number] [facility] 2019-12-27 10:40:00 2019-12-27 10:40:[address] [facility] [id number] [place] [facility] 2019-12-27 10:00:00 2019-12-27 10:00:00 [facility] [address] [id number] [facility] 2019-11-15 11:20:00 2019-11-15 11:20:00 [facility] [address] [id number] [facility] [place] [facility] 2019-08-09 08:38:00 2019-08-09 08:38:00 [facility] [address] [id number] [facility] 2019-08-01 08:00:00 2019-08-01 08:00:00 [facility] [address] [id number] [facility] [place] [facility] 2019-05-08 08:00:00 2019-05-08 08:00:00 [facility] [address] [facility] [id number] [facility] [place] [facility] 2019-05-05 10:00:00 2019-05-05 10:00:[address] [facility] [facility] [address] [facility] [id number] [facility] [place] [facility] Results Test Description Test Time Test Comments Results Result Co mments Source
[2024-06-23] MEDS ORDERED: LEVALBUTEROL 1.25 MG/3 ML NEB ONE ×2 (19:28→21:25)
[2024-06-23] MEDS ORDERED: METHYLPREDNISOLONE 125 MG INJ ONE (19:28)
[2024-06-23] MEDS ORDERED: IPRATROPIUM BROM 0.5MG/2.5ML ONE (19:28)
[2024-06-23] MEDS ORDERED: FAMOTIDINE 20 MG/2 ML VIAL IV ONE (19:29)
[2024-06-23] MEDS ORDERED: ENOXAPARIN 40 MG/0.4 ML SQ ONE (19:29)
[2024-06-23] MEDS ORDERED: NA CHLORIDE 0.9% 1,000 ML ONE (19:29)
[2024-06-23] MEDS ORDERED: Magnesium Sulfate 2gm IVPB 2 G/50 ML BAG IV ONE (19:29)
[2024-06-23 19:34] LABS: Absolute Basophils 0.1 K/uL (0-0.5); Absolute Eosinophils 0.3 K/uL (0-0.5); Absolute Monocytes 0.6 K/uL (0.1-1.3); Absolute Neutrophil 9.9 K/uL (1.8-8.0); Basophils % 0.5 % (0-1.3); Eosinophils % 2.3 % (0-4.4); Hematocrit 44.4 % (39.6-49.0); Hemoglobin 14.9 g/dL (13.6-17.9); Lymphocytes % 8.2 % (15.3-44.8); MCH 28.8 pg (27.0-35.0); MCHC 33.5 g/dL (32.0-36.0); MPV 9.7 fL (7.6-11.3); Monocytes % 4.9 % (3.3-12.3); Neutrophils % 84.1 % (41.7-73.7); Nucleated Red Blood Cells % 0.1 % (0-0); Platelets 142 thou/uL (152-406); RBC Red Blood Cell Count 5.16 M/uL (4.33-5.43); Red Cell Distribution Width 14.3 % (12.1-15.2)
[2024-06-23 19:44] LABS: Protime INR 1.14
[2024-06-23 19:56] LABS: ALT/SGPT 34 U/L (16-61); AST/SGOT 25 U/L (15-37); Albumin 3.3 g/dL (3.4-5.0); Albumin/Globulin Ratio 0.8 (1.1-1.8); Alkaline Phosphatase 76 U/L (45-117); Anion Gap 7.8 mEq/L (5.0-15.0); BUN Blood Urea Nitrogen 15 mg/dL (7-18); Bicarbonate 29 mEq/L (21-32); Bilirubin Direct 0.2 mg/dL (0-0.2); Bilirubin Indirect, Calculated 0.4 mg/dL (0.2-0.8); Bilirubin Total 0.6 mg/dL (0.2-1.0); Globulin 4.3 g/dL (2.3-3.5); Glomerular Filtration Rate 45 ml/min (=/>90); Glucose Level 132 mg/dL (74-106); Lipase 35 U/L (13-75); Magnesium 2.2 mg/dL (1.6-2.4); NT PRO-BNP 95 pg/mL (<125); Potassium 3.8 mEq/L (3.5-5.1); Protein, Total 7.6 g/dL (6.4-8.2); Sodium Level 141 mEq/L (136-145)
[2024-06-23 19:58] LABS: Troponin High Sensitivity < 3.0 pg/mL (<58.9)
--- NOTE | 2024-06-23 19:59 | ER ---
Nurse's Notes [facility] Name: Mitul Jeong Age: 73 yrs Sex: Male : 1950 Arrival Date: 06/23/2024 Time: 18:32 Bed 5 Private MD: Diagnosis: Dyspnea;Essential (primary) hypertension;Tobacco use-PAST, FORMER SMOKER;COPD/ Chronic obstructive pulmonary disease with (acute) exacerbation;Obesity, unspecified;Hypoxemia Presentation: 06/23 18:43 Chief complaint: Patient states: SOB and fatigue x 1 week, worse today now with some ss nausea. Coronavirus screen: Client denies travel out of the [place] in the last 14 days. Ebola Screen: Patient denies exposure to infectious person. Patient denies travel to an Ebola-affected area in the 21 days before illness onset. Initial Sepsis Screen: Does the patient meet any 2 criteria? HR > 90 bpm. Does the patient have a suspected source of infection? No. Patient's initial sepsis screen is negative. Risk Assessment: Do you want to hurt yourself or someone else? Patient reports no desire to harm self or others. Onset of symptoms was June 16, 2024. 18:43 Method Of Arrival: Ambulatory ss 18:43 Acuity: GABRIELA 2 ss Triage Assessment: 22:06 General: Appears in no apparent distress. comfortable. Respiratory: Onset: The kj2 symptoms/episode began/occurred gradually, the patient has moderate shortness of breath. Respiratory: Airway is patent Trachea midline Respiratory effort is even, unlabored, Respiratory pattern is regular, symmetrical. Historical: - Allergies: 18:46 No Known Allergies; ss - Home Meds: 18:46 Hydrochlorothiazide Oral [Active]; losartan oral [Active]; ss - PMHx: 18:46 BPH (Unknown); Hypertension; ss - Immunization history:: Adult Immunizations up to date. - Infectious Disease History:: Denies. - Social history:: Smoking status: unknown. Screenin:38 [facility] ED Fall Risk Assessment (Adult) History of falling in the last 3 months, kj2 including since admission No falls in past 3 months (0 pts) Confusion or Disorientation No (0 pts) Intoxicated or Sedated No (0 pts) Impaired Gait No (0 pts) Mobility Assist Device Used No (0 pt) Altered Elimination No (0 pt) Score/Fall Risk Level 0 - 2 = Low Risk Oriented to surroundings, Maintained a safe environment, Educated pt \T\ family on fall prevention, incl call for assistance when getting out of bed, Assessed \T\ reinforced patient's understanding of fall precautions, Hourly rounding (assess needs \T\ fall precautionary measures) done, Used ambulatory aids as needed (educated on \T\ assisted with), Used gait belt as appropriate. Abuse screen: Denies threats or abuse. Nutritional screening: No deficits noted. Tuberculosis screening: No symptoms or risk factors identified. Assessment: 19:38 General: Appears in no apparent distress. comfortable, Behavior is calm, cooperative, kj2 appropriate for age. Pain: Complains of pain in right upper quadrant and left upper quadrant Pain currently is 6 out of 10 on a pain scale. Quality of pain is described as aching, crampy. Neuro: No deficits noted. Level of Consciousness is awake, alert, obeys commands, Oriented to person, place, time, situation, Appropriate for age. Cardiovascular: Reports shortness of breath, Denies chest pain, Heart tones S1 S2 present Capillary refill < 3 seconds in bilateral fingers Patient's skin is warm and dry. Rhythm is regular. Respiratory: Airway is patent Respiratory effort is even, unlabored, Breath sounds are clear bilaterally. GI: Abdomen is round distended, Bowel sounds present X 4 quads. Reports upper abdominal pain, Pain is 6 out of 10 on a pain scale. Patient currently denies nausea, vomiting. : No signs and/or symptoms were reported regarding the genitourinary system. EENT: No signs and/or symptoms were reported regarding the EENT system. Derm: No signs and/or symptoms reported regarding the dermatologic system. Musculoskeletal: No signs and/or symptoms reported regarding the musculoskeletal system. 20:40 Reassessment: Patient appears in no apparent distress at this time. Patient and/or kj2 family updated on plan of care and expected duration. Pain level reassessed. Patient is alert, oriented x 3, equal unlabored respirations, skin warm/dry/pink. 22:03 Reassessment: Patient appears in no apparent distress at this time. Patient and/or kj2 family updated on plan of care and expected duration. Pain level reassessed. Patient is alert, oriented x 3, equal unlabored respirations, skin warm/dry/pink. Patient states feeling better. Patient states symptoms have improved. Vital Signs: 18:43 BP 151 / 103; Pulse 99; Resp 24; Temp 98.2(O); Pulse Ox 89% on R/A; Pain 0/10; ss 20:40 BP 114 / 97; Pulse 113; Resp 20; Pulse Ox 95% ; kj2 22:03 Pulse 111; Resp 20; Temp 98.2; Pulse Ox 95% on 2 lpm NC; Pain 3/10; kj2 18:43 Pain Scale: Adult ss 22:03 Pain Scale: Adult kj2 Zanoni Coma Score: 19:38 Eye Response: spontaneous(4). Motor Response: obeys commands(6). Verbal Response: kj2 oriented(5). Total: 15. 22:03 Eye Response: spontaneous(4). Motor Response: obeys commands(6). Verbal Response: kj2 oriented(5). Total: 15. ED Course: 18:36 Patient arrived in ED. ss 18:45 Scott Browne MD is Attending Physician. indra 18:46 Triage completed. ss 18:46 Arm band placed on left wrist. ss 19:10 XRAY Chest (1 view) In Process Unspecified. EDMS 19:18 EKG done, by ED staff. sa1 19:20 No provider procedures requiring assistance completed. kj2 19:20 Initial lab(s) drawn, by me, sent to lab. First set of blood cultures drawn by me. kj2 Inserted saline lock: 20 gauge in right antecubital area, using aseptic technique. Blood collected. Flushed with 10 mL NS. Oxygen administered via a nebulizer mask. Response to oxygen therapy: symptoms improved. 19:35 Second set of blood cultures drawn by me. kj2 19:38 Eloina Hunter, DEVANTE is Primary Nurse. kj2 19:38 Patient has correct armband on for positive identification. Client placed on continuous kj2 cardiac and pulse oximetry monitoring. NIBP monitoring applied. lunchroom monitor on. Pulse ox on. NIBP on. Door closed. Noise minimized. Visitors limited. Warm blanket given. Pillow given. Verbal reassurance given. Head of bed elevated. 19:57 Zelalem Chinchilla MD is Hospitalizing Provider. indra 20:36 CT Chest For PE Angio In Process Unspecified. EDMS 22:03 Provided Education on: need for admission. kj2 22:03 Patient admitted, IV remains in place. kj2 Administered Medications: 19:54 Drug: Lovenox Sub-Q 40 mg Sub-Q once Route: Sub-Q; Site: abdomen; kj2 22:04 Follow up: Response: No adverse reaction kj2 19:54 Drug: Famotidine IVP 20 mg IVP once; dilute with 10 mL 0.9% NaCl; give over 2 minutes kj2 Route: IVP; Site: right antecubital; 22:04 Follow up: Response: No adverse reaction kj2 19:54 Drug: Magnesium Sulfate IVPB 2 grams IVPB once over 2 hrs Route: IVPB; Infused Over: 2 kj2 hrs; Site: right antecubital; 22:04 Follow up: Response: No adverse reaction; IV Status: Completed infusion; IV Intake: [id number] 19:55 Drug: NS 0.9% IV 1000 ml IV at 125 ml/hr once Route: IV; Rate: 125 ml/hr; Site: right kj antecubital; 22:07 Follow up: Response: No adverse reaction; IV Status: Completed infusion kj2 19:55 Drug: Levalbuterol Inhalation 2.5 mg Inhalation once Route: Inhalation; kj2 22:05 Follow up: Response: No adverse reaction kj2 19:55 Drug: Ipratropium Inhalation Aerosol 0.5 mg Inhalation once Route: Inhalation; kj2 22:05 Follow up: Response: No adverse reaction kj2 19:55 Drug: MethylPrednisoLONE IVP 125 mg IVP once Route: IVP; Site: right antecubital; kj2 22:05 Follow up: Response: No adverse reaction kj2 19:55 Drug: Levalbuterol Inhalation 1.25 mg Inhalation once Route: Inhalation; kj2 22:05 Follow up: Response: No adverse reaction kj2 20:12 Drug: Rocephin IV 1 grams IV at per protocol once; Given slow IV push per pharmacy kj2 instructions Route: IV; Rate: per protocol; Site: right antecubital; 22:04 Follow up: Response: No adverse reaction; IV Status: Completed infusion; IV Intake: [id number] 20:12 Drug: AZITHromycin PO 500 mg PO once Route: PO; kj2 22:04 Follow up: Response: No adverse reaction kj2 21:18 Not Given (Patient Refused): Mucomyst - [id number] mg PO once kj2 21:28 Drug: Levalbuterol Inhalation 2.5 mg Inhalation once Route: Inhalation; kj2 22:04 Follow up: Response: No adverse reaction kj2 21:28 Drug: Decadron - Dexamethasone IVP 10 mg IVP once Route: IVP; Site: right antecubital; kj2 22:04 Follow up: Response: No adverse reaction kj2 Medication: 19:38 VIS not applicable for this client. kj2 Intake: 22:04 IV: 50ml; Total: 50ml. kj2 22:04 IV: 50ml; Total: 100ml. kj2 Outcome: 19:58 Decision to Hospitalize by Provider. indra 22:03 Admitted to Tele accompanied by tech, via stretcher, room 415, with oxygen, with chart, kj2 22:03 Condition: stable 22:03 Instructed on the need for admit, Demonstrated understanding of follow-up care, medications, 22:06 Patient left the ED. kj2 Signatures: Dispatcher [employer] Scott Nesbitt MD MD cha Blanchard, Shelby, RN RN Sultan Demar [id number] Eloina Hunter, DEVANTE RN kj2
--- NOTE | 2024-06-23 19:59 | EDPHYS ---
Physician Documentation [facility] Name: Mitul Traviszalysa Age: 73 yrs Sex: Male : 1950 Arrival Date: 06/23/2024 Time: 18:32 Bed 5 Private MD: ED Physician Scott Browne HPI: 06/23 18:54 This 73 yrs old Unknown Male presents to ER via Ambulatory with complaints of Shortness indra Of Breath. 18:54 The patient has shortness of breath at rest, with light activity. Onset: The indra symptoms/episode began/occurred 3 day(s) ago. Duration: The symptoms are continuous, and are steadily getting worse. The patient's shortness of breath is aggravated by coughing, exertion, light activity. Associated signs and symptoms: Pertinent positives: non-productive cough. Severity of symptoms: At their worst the symptoms were moderate in the emergency department the symptoms are unchanged. The patient has experienced similar episodes in the past, a few times. Historical: - Allergies: 18:46 No Known Allergies; ss - Home Meds: 18:46 Hydrochlorothiazide Oral [Active]; losartan oral [Active]; ss - PMHx: 18:46 BPH (Unknown); Hypertension; ss - Immunization history:: Adult Immunizations up to date. - Infectious Disease History:: Denies. - Social history:: Smoking status: unknown. ROS: 18:55 Constitutional: Negative for fever, chills, and weight loss, Eyes: Negative for injury, indra pain, redness, and discharge, ENT: Negative for injury, pain, and discharge, Neck: Negative for injury, pain, and swelling, Cardiovascular: Negative for chest pain, palpitations, and edema, Abdomen/GI: Negative for abdominal pain, nausea, vomiting, diarrhea, and constipation, Back: Negative for injury and pain, : Negative for injury, bleeding, discharge, and swelling, MS/Extremity: Negative for injury and deformity, Skin: Negative for injury, rash, and discoloration, Neuro: Negative for headache, weakness, numbness, tingling, and seizure, Psych: Negative for depression, anxiety, suicide ideation, homicidal ideation, and hallucinations, Allergy/Immunology: Negative for hives, rash, and allergies, Endocrine: Negative for neck swelling, polydipsia, polyuria, polyphagia, and marked weight changes, Hematologic/Lymphatic: Negative for swollen nodes, abnormal bleeding, and unusual bruising, 18:55 Respiratory: Positive for cough, shortness of breath, wheezing, expiratory, Exam: 18:55 Constitutional: This is a well developed, well nourished patient who is awake, alert, indra and in no acute distress. Head/Face: Normocephalic, atraumatic. Eyes: Pupils equal round and reactive to light, extra-ocular motions intact. Lids and lashes normal. Conjunctiva and sclera are non-icteric and not injected. Cornea within normal limits. Periorbital areas with no swelling, redness, or edema. ENT: Nares patent. No nasal discharge, no septal abnormalities noted. Tympanic membranes are normal and external auditory canals are clear. Oropharynx with no redness, swelling, or masses, exudates, or evidence of obstruction, uvula midline. Mucous membranes moist. Neck: Trachea midline, no thyromegaly or masses palpated, and no cervical lymphadenopathy. Supple, full range of motion without nuchal rigidity, or vertebral point tenderness. No Meningismus. Chest/axilla: Normal chest wall appearance and motion. Nontender with no deformity. No lesions are appreciated. Cardiovascular: Regular rate and rhythm with a normal S1 and S2. No gallops, murmurs, or rubs. Normal PMI, no JVD. No pulse deficits. Abdomen/GI: Soft, non-tender, with normal bowel sounds. No distension or tympany. No guarding or rebound. No evidence of tenderness throughout. Back: No spinal tenderness. No costovertebral tenderness. Full range of motion. Male : Normal genitalia with no discharge or lesions. Skin: Warm, dry with normal turgor. Normal color with no rashes, no lesions, and no evidence of cellulitis. MS/ Extremity: Pulses equal, no cyanosis. Neurovascular intact. Full, normal range of motion., bilateral aka Neuro: Awake and alert, GCS 15, oriented to person, place, time, and situation. Cranial nerves II-XII grossly intact. Motor strength 5/5 in all extremities. Sensory grossly intact. Cerebellar exam normal. Normal gait. Psych: Awake, alert, with orientation to person, place and time. Behavior, mood, and affect are within normal limits. 18:55 Respiratory: mild respiratory distress is noted, Respirations: labored breathing, that is moderate, Breath sounds: bronchial sounds, that are mild, are scattered, decreased breath sounds, that are moderate, are scattered, rhonchi, that are mild, stridor, is not appreciated, wheezing: expiratory is scattered, 18:55 Musculoskeletal/extremity: DVT Exam: No signs of deep vein thrombosis. no pain, no swelling, no tenderness, negative Homans' sign noted on exam, no appreciated bluish discoloration, no erythema, no increased warmth, 19:00 ECG was reviewed by the Attending Physician. [facility] 20:01 ECG was reviewed by the Attending Physician. [facility] Vital Signs: 18:43 BP 151 / 103; Pulse 99; Resp 24; Temp 98.2(O); Pulse Ox 89% on R/A; Pain 0/10; ss 20:40 BP 114 / 97; Pulse 113; Resp 20; Pulse Ox 95% ; kj2 22:03 Pulse 111; Resp 20; Temp 98.2; Pulse Ox 95% on 2 lpm NC; Pain 3/10; kj2 18:43 Pain Scale: Adult ss 22:03 Pain Scale: Adult kj2 Gilbert Coma Score: 19:38 Eye Response: spontaneous(4). Motor Response: obeys commands(6). Verbal Response: kj2 oriented(5). Total: 15. 22:03 Eye Response: spontaneous(4). Motor Response: obeys commands(6). Verbal Response: kj2 oriented(5). Total: 15. MDM: 18:45 Medical Screening Exam initiated indra 18:57 Differential diagnosis: Anxiety Reaction asthma, CHF exacerbation, Chronic Obstructive indra Pulmonary Disease obstructed airway, bronchitis, flu, URI, Myocardial Infarction pneumonia, pulmonary edema, Pulmonary Embolism reactive airway disease, Sepsis Unstable Angina. Antibiotic administration: Rocephin and Zithromax given. Immunization status: Pneumococcal vaccine: within last 5 years. Influenza vaccine: within last 5 years. Data reviewed: vital signs, nurses notes, lab test result(s), EKG, radiologic studies, CT scan, plain films. Consideration of Admission/Observation Patient was admitted/placed on observation. Escalation of care including admission/observation considered. I considered the following discharge prescriptions or medication management in the emergency department Medications were administered in the Emergency Department. See MAR. Test considered but Not performed: Ultrasound NO 2 D ECHO. Historians other than the Patient: Spouse/Significant Other: WELL INFORMED. Care significantly affected by the following chronic conditions: Hypertension, Chronic Obstructive Pulmonary Disease, Obesity. Counseling: I had a detailed discussion with the patient and/or guardian regarding the historical points, exam findings, and any diagnostic results supporting the discharge/admit diagnosis, the presence of at least one elevated blood pressure reading (>120/80) during this emergency department visit, lab results, radiology results, the need for further work-up and treatment in the hospital. 06/23 18:47 Order name: Basic Metabolic Panel; Complete Time: 20:21 indra 06/23 18:47 Order name: CBC with Diff; Complete Time: 19:56 06/23 18:47 Order name: LFT's; Complete Time: 20:21 06/23 18:47 Order name: Magnesium; Complete Time: 20:21 06/23 18:47 Order name: NT PRO-BNP; Complete Time: 20:21 06/23 18:47 Order name: PT-INR; Complete Time: 19:56 06/23 18:47 Order name: Troponin HS; Complete Time: 20:21 06/23 18:47 Order name: Blood Culture Adult (2) 06/23 18:47 Order name: Lipase; Complete Time: 20:21 06/23 18:47 Order name: Lactate w/ 2H reflex if indic.; Complete Time: 19:56 06/23 18:47 Order name: SARS RAPID; Complete Time: 20:21 06/23 18:47 Order name: Flu; Complete Time: 20:21 06/23 18:47 Order name: Urinalysis w/ reflexes 06/23 20:33 Order name: CBC with Automated Diff EDMS 06/23 20:33 Order name: CBC with Automated Diff EDMS 06/23 20:33 Order name: Comprehensive Metabolic Panel EDCA 06/23 20:33 Order name: Comprehensive Metabolic Panel EDMS 06/23 18:47 Order name: XRAY Chest (1 view) 06/23 18:54 Order name: CT Chest For PE Angio 06/23 18:47 Order name: EKG; Complete Time: 18:48 06/23 18:47 Order name: Cardiac monitoring; Complete Time: 19:55 06/23 18:47 Order name: EKG - Nurse/Tech; Complete Time: 19:18 [facility] 06/23 18:47 Order name: IV Saline Lock; Complete Time: [facility] 06/23 18:47 Order name: Labs collected and sent; Complete Time: [facility] 06/23 18:47 Order name: O2 Per Protocol; Complete Time: [facility] 06/23 18:47 Order name: O2 Sat Monitoring; Complete Time: : [facility] EC:01 Rate is 919 beats/min. Rhythm is regular. QRS [place] is Normal. MA interval is normal. [facility] QRS interval is normal. QT interval is normal. No Q waves. T waves are Normal. No ST changes noted. Clinical impression: NSR w/ Non-specific ST/T Changes and No evidence of ischemia. Interpreted by me. Reviewed by me. Administered Medications: 19:54 Drug: Lovenox Sub-Q 40 mg Sub-Q once Route: Sub-Q; Site: abdomen; kj2 22:04 Follow up: Response: No adverse reaction kj2 19:54 Drug: Famotidine IVP 20 mg IVP once; dilute with 10 mL 0.9% NaCl; give over 2 minutes kj2 Route: IVP; Site: right antecubital; 22:04 Follow up: Response: No adverse reaction kj2 19:54 Drug: Magnesium Sulfate IVPB 2 grams IVPB once over 2 hrs Route: IVPB; Infused Over: 2 kj2 hrs; Site: right antecubital; 22:04 Follow up: Response: No adverse reaction; IV Status: Completed infusion; IV Intake: [id number] 19:55 Drug: NS 0.9% IV 1000 ml IV at 125 ml/hr once Route: IV; Rate: 125 ml/hr; Site: right [facility] antecubital; 22:07 Follow up: Response: No adverse reaction; IV Status: Completed infusion kj2 19:55 Drug: Levalbuterol Inhalation 2.5 mg Inhalation once Route: Inhalation; kj2 22:05 Follow up: Response: No adverse reaction kj2 19:55 Drug: Ipratropium Inhalation Aerosol 0.5 mg Inhalation once Route: Inhalation; kj2 22:05 Follow up: Response: No adverse reaction kj2 19:55 Drug: MethylPrednisoLONE IVP 125 mg IVP once Route: IVP; Site: right antecubital; kj2 22:05 Follow up: Response: No adverse reaction kj2 19:55 Drug: Levalbuterol Inhalation 1.25 mg Inhalation once Route: Inhalation; kj2 22:05 Follow up: Response: No adverse reaction kj2 20:12 Drug: Rocephin IV 1 grams IV at per protocol once; Given slow IV push per pharmacy kj2 instructions Route: IV; Rate: per protocol; Site: right antecubital; 22:04 Follow up: Response: No adverse reaction; IV Status: Completed infusion; IV Intake: [id number] 20:12 Drug: AZITHromycin PO 500 mg PO once Route: PO; kj2 22:04 Follow up: Response: No adverse reaction kj2 21:18 Not Given (Patient Refused): Mucomyst - [id number] mg PO once kj2 21:28 Drug: Levalbuterol Inhalation 2.5 mg Inhalation once Route: Inhalation; kj2 22:04 Follow up: Response: No adverse reaction kj2 21:28 Drug: Decadron - Dexamethasone IVP 10 mg IVP once Route: IVP; Site: right antecubital; kj2 22:04 Follow up: Response: No adverse reaction kj2 Disposition Summary: 06/23/24 19:58 Hospitalization Ordered Notes: Hospitalization Status: Inpatient Admission indra Provider: Zelalem Chinchilla cha Location: Telemetry/MedSurg (Inpatient) indra Condition: Fair indra Problem: new indra Symptoms: have improved indra Bed/Room Type: Standard indra Room Assignment: 415(06/23/24 21:09) rv1 Diagnosis - Dyspnea indra - Essential (primary) hypertension indra - Tobacco use - PAST, FORMER SMOKER indra - COPD/ Chronic obstructive pulmonary disease with (acute) exacerbation indra - Obesity, unspecified indra - Hypoxemia indra Forms: - Medication Reconciliation Form indra - SBAR form indra - Leadership Thank You Letter indra Signatures: Dispatcher [employer] EDScott Pfeiffer MD MD cha Blanchard, Shelby, RN RN Aziza Nogueira rv1 Eloina Hunter RN RN kj2 Corrections: (The following items were deleted from the chart) 18:48 18:48 BASIC METABOLIC PANEL+C.LAB.BRZ ordered. EDMS EDMS 18:48 18:48 CBC+H.LAB.BRZ ordered. EDMS EDMS 18:48 18:48 HEPATIC FUNCTION+C.LAB.BRZ ordered. EDMS EDMS 18:48 18:48 MAGNESIUM+C.LAB.BRZ ordered. EDMS EDMS 18:48 18:48 PROBNP+C.LAB.BRZ ordered. EDMS EDMS 18:48 18:48 PROTIME (+INR)+COAG.LAB.BRZ ordered. EDMS EDMS 18:48 18:48 Troponin High Sensitivity+C.LAB.BRZ ordered. EDMS EDMS 18:48 18:48 BLOOD CULTURE*+BA.LAB.BRZ ordered. EDMS EDMS 18:48 18:48 LIPASE+C.LAB.BRZ ordered. EDMS EDMS 18:48 18:48 LACTATE+C.LAB.BRZ ordered. EDMS EDMS 18:48 18:48 SARS-COV-2 Antigen Rapid+I.LAB.BRZ ordered. EDMS EDMS 18:48 18:48 Influenza Screen (A \T\ B)+BA.LAB.BRZ ordered. EDMS EDMS 18:48 18:48 Urinalysis+U.LAB.BRZ ordered. EDMS EDMS 20:02 19:00 Rate is 79 beats/min. Rhythm is regular. QRS [place] is Normal. MA interval is indra prolonged at 226 msec. QRS interval is normal. QT interval is normal. No Q waves. T waves are Normal. No ST changes noted. Clinical impression: NSR w/ Non-specific ST/T Changes and No evidence of ischemia. Interpreted by me. Reviewed by me. indra 21:09 19:58 indra rv1
[2024-06-23] MEDS ORDERED: CEFTRIAXONE 1000 MG/VIAL ONE (20:00)
[2024-06-23] MEDS ORDERED: AZITHROMYCIN 250 MG TAB ONE (20:00)
[2024-06-23 20:09] LABS: SARS-CoV-2 Antigen CONTROL BLUE LINE VIS/BG OK; SARS-CoV-2 Antigen Rapid Res Negative (Negative)
[2024-06-23] MEDS ORDERED: FUROSEMIDE 40 MG/4 ML VIAL IV SCH (20:27)
[2024-06-23] MEDS ORDERED: ALBUTEROL 2.5 MG/3 ML NEB SOL NEB PRN (20:27)
--- NOTE | 2024-06-23 20:37 | P.HP ---
Certification for Inpatient With expected LOS: >2 Midnights Practitioner: I am a practitioner with admitting privileges, knowledge of patient current condition, hospital course, and medical plan of care. Services: Services provided to patient in accordance with Admission requirements found in Title 42 Section 412.3 of the Code of Federal Regulations Patient History Date of Service: 06/23/24 Reason for admission: Respiratory distress History of Present Illness: Patient is 73 years of age admitted with acute onset of shortness of breath he has been having dyspnea for the past year former smoker quit 8 years ago denies any chest pain no other prior history of cardiopulmonary disorders today noticed that his sat was below 90% came to the emergency room [place] any fever chills Allergies No Known Allergies Allergy (Verified 04/27/20 20:55) Home Medications: Losartan Potassium [Cozaar] 50 mg PO DAILY 04/27/20 hydroCHLOROthiazide [Hydrochlorothiazide*] 12.5 mg PO DAILY 04/27/20 Ascorbic Acid [Vitamin C*] 500 mg PO TID #90 tablet 04/29/20 Aspirin [Aspirin EC 81 MG] 81 mg PO DAILY #90 tablet. 04/29/20 Cholecalciferol (Vitamin D3) [Vitamin D 1000 Iu Tab] 2,000 unit PO DAILY #60 tab 04/29/20 Thiamine HCl 100 mg PO DAILY #30 tablet 04/29/20 predniSONE [Prednisone*] 20 mg PO SEECOM #21 tab 04/29/20 - Past Medical/Surgical History Diabetic: No -: hypertension - Family History Father -: Cancer Mother -: Cancer - Social History Alcohol use: No CD- Drugs: No Caffeine use: Yes Review of Systems 10-point ROS is otherwise unremarkable Physical Examination - Vital Signs Temperature: 98.2 F Blood Pressure: 133/74 Pulse: 99 Respirations: 23 Pulse Ox (%): 91 - Physical Exam General: Alert, Oriented x3 Respiratory: Clear to auscultation bilaterally Cardiovascular: No edema, Regular rate/rhythm Gastrointestinal: Normal bowel sounds, Soft and benign Musculoskeletal: No clubbing, No swelling Integumentary: No rashes, No breakdown - Studies Laboratory Data (last 24 hrs) 06/23/24 06/23/24 06/23/24 19:20 19:20 19:20 WBC 11.70 H Hgb 14.9 Hct 44.4 Plt Count 142 L PT 12.0 INR 1.14 Sodium 141 Potassium 3.8 BUN 15 Creatinine 1.62 H Glucose 132 H Magnesium 2.2 Total Bilirubin 0.6 AST 25 ALT 34 Alkaline Phosphatase 76 Lipase 35 Microbiology Data (last 24 hrs): 06/23/24 19:20 Nasopharnyx Influenza Type A Antigen Screen - Final 06/23/24 19:20 Nasopharnyx Influenza Type B Antigen Screen - Final Assessment and Plan - Problems (Diagnosis) (1) Acute respiratory failure with hypoxia Current Visit: No Status: Acute Plan: Patient is 73 years of age admitted with acute dyspnea heavy smoker quit 8 years ago dyspneic for the past year denies any chest pain patient's BNP is normal mild renal insufficiency creatinine of 1.62 white count is mildly elevated he has underlying obstructive airways disease to admit the patient treat with bronchodilators steroids echocardiogram had a CT pulmonary angiogram official report is pending no obvious thromboembolism he does have COPD changes in the upper lobe/also ordered renal ultrasound urinalysis trial of IV fluids to see if his renal function improved patient is on losartan at home - Advance Directives Does patient have a Living Will: No Does patient have a Durable POA for Healthcare: No
[2024-06-23] MEDS: IPRATROPIUM BROM 0.5MG/2.5ML NEB SCH (21:00)
--- NOTE | 2024-06-23 21:00 | RAD REPORT ---
EXAMINATION: CTA CHEST PE CLINICAL INDICATION: sob TECHNIQUE: 100 cc 370 Isovue administered intravenously. This examination was performed according to an angiographic protocol with 3D post-processing. This involves 3D reconstructions, MIPs, volume rendered images and/or shaded surface rendering. One or more of the following dose reduction techniqu es were used: Automated exposure control, adjustment of the mA and/or kV according to patient size, and/or iterative reconstruction. Unless otherwise specified, incidental findings do not require dedic ated imaging follow-up. [id number]. COMPARISON: 2019. FINDINGS: A pulmonary embolus is not seen. 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 No pleural effusion. No pericardial effusion. Lungs are clear. 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 Follow-up imaging in 6 months recommended to assess stability
--- NOTE | 2024-06-23 21:00 | RAD REPORT ---
Procedure: Chest Single View HISTORY: Shortness of breath COMPARISON: 2022 FINDINGS: The lungs appear clear of acute infiltrate. Lungs are mildly to moderately hyperaerated. No significant pleural effusion noted. The heart is mildly enlarged. IMPRESSION: No acute abnormality is displayed.
[2024-06-23] MEDS ORDERED: dexAMETHasone 10 MG/ML VIAL ONE (21:25)
[2024-06-23 22:58] VITALS: BMI 38.0
[2024-06-23] MEDS: NA CHLORIDE 0.9% 1,000 ML IV SCH (23:24)
[2024-06-23] MEDS: AMOX/K CLAV 500 MG TAB PO SCH (23:24)
[2024-06-24] MEDS: METHYLPREDNISOLONE 40 MG INJ IV SCH (00:43)
[2024-06-24 01:40] LABS: Sqamous Epithelial <5 /HPF (None Seen); Urine Bacteria None Seen /HPF (<20); Urine Bilirubin NEGATIVE (Negative); Urine Blood Negative (Negative); Urine Clarity Clear (Clear); Urine Color Yellow (Yellow); Urine Crystals Unidentified Few /HPF (None Seen); Urine Culture Reflex Order NOT NEEDED; Urine Glucose NEGATIVE (Negative); Urine Ketones NEGATIVE (Negative); Urine Microscopic Reflex YN ORDER UMIC; Urine Mucus Slight /HPF (None Seen); Urine Nitrite NEGATIVE (Negative); Urine Protein 1+ (Negative); Urine RBC <5 /HPF (None Seen); Urine Urobilinogen Normal (Normal)
[2024-06-24 01:42] LABS: Specific Gravity > 1.030 (1.005-1.030)
[2024-06-24 06:13] LABS: Absolute Lymphocytes (CBC) 0.4 K/uL (0.7-4.9); Absolute Monocytes 0.1 K/uL (0.1-1.3); Absolute Neutrophil 8.6 K/uL (1.8-8.0); Basophils % 0.1 % (0-1.3); Hematocrit 41.2 % (39.6-49.0); Hemoglobin 13.9 g/dL (13.6-17.9); Lymphocytes % 4.2 % (15.3-44.8); MCHC 33.7 g/dL (32.0-36.0); MPV 9.5 fL (7.6-11.3); Monocytes % 0.9 % (3.3-12.3); Neutrophils % 94.8 % (41.7-73.7); Nucleated Red Blood Cells % 0.1 % (0-0); Platelets 154 thou/uL (152-406); RBC Red Blood Cell Count 4.79 M/uL (4.33-5.43); Red Cell Distribution Width 14.2 % (12.1-15.2)
[2024-06-24 06:30] LABS: Albumin 3.1 g/dL (3.4-5.0); Albumin/Globulin Ratio 0.8 (1.1-1.8); Anion Gap 12.7 mEq/L (5.0-15.0); Bilirubin Total 0.5 mg/dL (0.2-1.0); Globulin 3.9 g/dL (2.3-3.5); Potassium 3.7 mEq/L (3.5-5.1)
[2024-06-24] MEDS: ARFORMOTEROL TARTRATE 15 MCG/2 ML VIAL.NEB NEB SCH (07:14)
[2024-06-24 08:48] LABS: Blood Morphology Comment NOT SEEN (NOT SEEN); Platelet Estimate ADEQ; White Blood Cell Scan OK (OK)
[2024-06-24] MEDS: LOSARTAN POTASSIUM 50 MG TABLET PO SCH (09:00)
[2024-06-24] MEDS: hydroCHLOROthiazide 12.5 MG CAP PO SCH (09:00)
--- NOTE | 2024-06-24 12:24 | RAD REPORT ---
EXAMINATION: US RENAL ULTRASOUND CLINICAL INDICATION: Renal failure TECHNIQUE: Real-time ultrasonography of the abdomen was performed. COMPARISON: No prior exam. FINDINGS: RIGHT KIDNEY: Right renal length measurement: 10.8 x 6.7 x 5.2 cm. Normal in echogenicity and size. N o calculus, solid mass or hydronephrosis. 3.8 x 3.0 cm benign cyst is present. LEFT KIDNEY: Left renal length measurement: 10.9 x 5.4 x 4.6 cm. Normal in echogenicity and size. No calculus, solid mass or hydronephrosis. URINARY BLADDER: Incompletely distended without gross abnormality detected. ADDITIONAL FINDINGS: None. IMPRESSION: 3.8 cm benign cyst right kidney, otherwise unremarkable study.
[2024-06-24 12:31] VITALS: BP 142/67; TEMP 97.7
--- NOTE | 2024-06-24 12:53 | P.DS ---
Admission Date: 06/23/24 Discharge Date: 06/24/24 Disposition: ROUTINE DISCHARGE Discharge Condition: GOOD Reason for Admission: Respiratory distress Brief History of Present Illness: Patient is 73 years of age gentleman ex-smoker with a past medical history notable for hypertension, CKD who presented to emergency room for evaluation of sudden onset of shortness of breath and found to have saturation 89% on room air. CTA of the chest demonstrated no pulmonary embolism or pulmonary or pneumonia but findings suggestive of pulmonary emphysema in both upper lobes of the lung. He was admitted on general medical floor. He has had similar episodes of shortness of breath on exertion in the past 1 year after bad COVID infection. He does not have any diagnosis of COPD. Hospital Course: He tested negative for COVID-19, influenza and RSV by rapid antigen test. He was treated with supplemental oxygen , 2 L per minute by nasal cannula, scheduled DuoNeb, IV methylprednisolone, Augmentin. His symptoms markedly improved the following day, he was able to wean off the oxygen. He is being discharged home. Plan is to see his PCP or [facility] for pulmonary function test as outpatient. #1 transient borderline hypoxemia secondary to #2 resolved #2 highly likely COPD #3. Controlled hypertension #4 CKD stage III Stable renal function, normokalemia, no obstructive uropathy but benign renal cyst by ultrasound of kidney #5 obesity Vital Signs/Physical Exam: Temp Pulse Resp BP Pulse Ox 97.7 F 92 H 16 142/67 H 94 06/24/24 12:00 06/24/24 12:00 06/24/24 12:00 06/24/24 12:00 06/24/24 12:00 Other Physical/Emotional Findings: - Physical Exam. General: Obese, not acutely ill looking, in no apparent distress,. HEENT: Normocephalic, atraumatic, nonicteric sclera, nonanemic conjunctive. Neck: Supple, without JVD or goiter or thyroid mass. Respiratory: Normal breathing effort, clear to auscultation bilaterally, no crackles no wheezing or rhonchi. Cardiovascular: Regular rate and rhythm, S1, S2 normal, no murmur no gallop. Gastrointestinal: Normal bowel sounds, nondistended, nontender, No ascites, , No masses, no hepatosplenomegaly. Extremities : No clubbing, No peripheral edema,. Integumentary: No rashes, petechia, suspected lesions. Lymphatics: No axilla or cervical lymphadenopathy. Neurology; alert awake oriented x3, no focal neurologic deficit, normal affection . mood and behavior. Laboratory Data at Discharge: WBC 9.10 thou/uL (4.3-10.9) 06/24/24 05:36 Hgb 13.9 g/dL (13.6-17.9) 06/24/24 05:36 Hct 41.2 % (39.6-49.0) 06/24/24 05:36 Plt Count 154 thou/uL (152-406) 06/24/24 05:36 PT 12.0 SECONDS (9.4-12.5) 06/23/24 19:20 INR 1.14 06/23/24 19:20 Sodium 141 mEq/L (136-145) 06/24/24 05:36 Potassium 3.7 mEq/L (3.5-5.1) 06/24/24 05:36 BUN 15 mg/dL (7-18) 06/24/24 05:36 Creatinine 1.79 mg/dL (0.70-1.30) H 06/24/24 05:36 Glucose 186 mg/dL (74-106) H 06/24/24 05:36 Magnesium 2.2 mg/dL (1.6-2.4) 06/23/24 19:20 Total Bilirubin 0.5 mg/dL (0.2-1.0) 06/24/24 05:36 AST 19 U/L (15-37) 06/24/24 05:36 ALT 29 U/L (16-61) 06/24/24 05:36 Alkaline Phosphatase 69 U/L (45-117) 06/24/24 05:36 Lipase 35 U/L (13-75) 06/23/24 19:20 Home Medications: Losartan Potassium [Cozaar*] 50 mg PO DAILY 04/27/20 hydroCHLOROthiazide [Hydrochlorothiazide*] 12.5 mg PO DAILY 04/27/20 Albuterol Inhaler [Ventolin Inhaler*] 2 puff IH QID PRN #1 06/24/24 Tiotropium [Spiriva Handihaler] 5 sprays IH DAILY #1 ea 06/24/24 New Medications: Tiotropium [Spiriva Handihaler] 5 sprays IH DAILY #1 ea Albuterol Inhaler [Ventolin Inhaler*] 2 puff IH QID PRN #1 PRN Reason: Shortness Of Breath Followup: Zelalem Chinchilla MD [ACTIVE - CAN ADMIT] - Christina Blake MD [Primary Care Provider] -
[2024-06-24 14:27] VITALS: O2SAT 94
--- NOTE | 2024-07-03 12:45 | EKG ---
Test Date: 2024-06-23 Test Time: 19:16:35 [employer] Director: MEASUREMENT RESULTS: Intervals: Rate: 91 WA: 162 QRSD: 94 QT: 356 QTc: 437 [place]: P: 56 WA: 162 QRS: -77 T: 63 INTERPRETIVE STATEMENTS: Normal sinus rhythm Incomplete right bundle branch block Left anterior fascicular block Abnormal ECG Compared to ECG 04/26/2023 23:29:57 Left anterior fascicular block now present Electronically Signed On 07-03-24 12:23:05 ASSEMBLY REPAIRER by Panchito Isaac
== END 2024-06-24 14:50 | disposition home or self-care (01) | DRG 190 ==
LOC: ER 18:32 → ERHOLD 20:27 → 4TH 22:17
PROVIDERS: ADMIT Internal Medicine Sleep Medicine; ATTEND Internal Medicine
DX: J44.1 Chronic obstructive pulmonary disease with (acute) exacerbation (principal); J96.01 Acute respiratory failure with hypoxia; N28.1 Cyst of kidney, acquired; I12.9 Hypertensive chronic kidney disease with stage 1 through stage 4 chronic kidney disease, or unspecified chronic kidney disease; N18.30 Chronic kidney disease, stage 3 unspecified; N40.0 Benign prostatic hyperplasia without lower urinary tract symptoms; E66.9 Obesity, unspecified; Z79.82 Long term (current) use of aspirin; Z68.38 Body mass index [BMI] 38.0-38.9, adult; Z79.52 Long term (current) use of systemic steroids; Z87.891 Personal history of nicotine dependence; Z79.899 Other long term (current) drug therapy
CPT/HCPCS: 36415; 71045; 71275; 76770; 80048; 80053; 80076; 81001; 83605; 83690; 83735; 83880; 84484; 85025; 85610; 87040; 87804; 87807; 87811; 93005; 94760; 96365; 96372; 96375; 99285; G0378; J0696; J1100; J1650; J2919; J3475; J7030; J7614; J7644; Q9967